=== PATIENT | female | born 1955 | race Two or more races ===

== ENCOUNTER 2020-03-21 00:45 | Inpatient (IN) | payer MEDICAID, MEDICARE ==
[2020-03-21 01:16] LABS: ABSOLUTE LYMPHOCYTES (AUTO) 1.3 10^3/uL (0.5-4.7); ABSOLUTE MONOCYTES (AUTO) 0.6 10^3/uL (0.1-1.4); ABSOLUTE NEUT (AUTO) 5.7 10^3/uL (1.7-8.2); BASOPHILS % (AUTO) 0.6 % (0-2); HEMOGLOBIN 13.6 g/dL (12.0-15.5); LYMPHOCYTES % (AUTO) 17.5 % (13-45); MEAN CORPUSCULAR HEMOGLOBIN 28.2 pg (27.0-33.4); MEAN CORPUSCULAR HGB CONC 34.9 g/dL (32.0-36.0); MEAN CORPUSCULAR VOLUME 81 fl (80-97); MONOCYTES % (AUTO) 8.3 % (3-13); PLATELET COUNT 200 10^3/uL (150-450); RED BLOOD COUNT 4.84 10^6/uL (3.72-5.28); RED CELL DISTRIBUTION WIDTH 15.8 % (11.5-14.0); SEGMENTED NEUTROPHILS % (AUTO) 73.6 % (42-78); TOTAL CELLS COUNTED % (AUTO) 100 %; WHITE BLOOD COUNT 7.7 10^3/uL (4.0-10.5)
[2020-03-21] MEDS ORDERED: ACETAMINOPHEN 325 MG TABLET PO ONE (01:30)
[2020-03-21] MEDS ORDERED: NORMAL SALINE 1000 ML 1,000 ML IV ONE (01:31)
--- NOTE | 2020-03-21 01:32 | ER Document Report ---
ED Respiratory Problem - General Chief Complaint: Shortness Of Breath Stated Complaint: SHORTNESS OF BREATH Time Seen by Provider: 03/21/20 01:20 Notes: Patient is a 64-year-old female that comes to the emergency department for chief complaint of cough, fevers, chills, body aches, shortness of breath. Patient states that she was diagnosed with COVID-19 approximately 3 days ago with primary care, she states since then she has worsened and over the past days she has had decreased energy, increased weakness, and increased difficulty breathin g. She denies specific chest pain, headache, abdominal pain. She states she stopped smoking over 30 years ago, denies history of asthma or COPD. She reports a past medical history of type 2 diabetes, obesity, hypertension. She denies any cardiac history. Patient is on 4 L nasal cannula this time, she came by EMS, initial oxygen saturation was 85% on room air. TRAVEL OUTSIDE OF THE [place] IN LAST 30 DAYS: No - Related Data Allergies/Adverse Reactions: No Known Allergies Allergy (Unverified 02/28/15 11:56) Past Medical History - General Information source: Patient - Social History Smoking Status: Former Smoker Frequency of alcohol use: None Drug Abuse: None Lives with: Family Family History: Reviewed & Not Pertinent Patient has homicidal ideation: No - Past Medical History Cardiac Medical History: Reports: Hx Hypertension Endocrine Medical History: Reports: Hx Diabetes Mellitus Type 2 Musculoskeletal Medical History: Reports Hx Arthritis Past Surgical History: Reports: Hx Breast Surgery - lumpectomy - Immunizations Hx Diphtheria, Pertussis, Tetanus Vaccination: Yes Review of Systems - Review of Systems Constitutional: See HPI EENT: No symptoms reported Cardiovascular: No symptoms reported Respiratory: See HPI Gastrointestinal: No symptoms reported Genitourinary: No symptoms reported Female Genitourinary: No symptoms reported Musculoskeletal: No symptoms reported Skin: No symptoms reported Hematologic/Lymphatic: No symptoms reported Neurological/Psychological: No symptoms reported Physical Exam - Vital signs Vitals: Resp Pulse Ox 29 H 95 03/21/20 00:45 03/21/20 00:45 - Notes Notes: GENERAL: Patient is alert, interactive, mildly ill-appearing HEAD: Normocephalic, atraumatic. EYES: Pupils equal, round, and reactive to light. Extraocular movements intact. ENT: Oral mucosa moist, tongue midline. Oropharynx unremarkable. Airway patent. NECK: Full range of motion. Supple. Trachea midline. No lymphadenopathy. LUNGS: Occasional coughing episodes, borderline tachypnea, bilateral rales especially on the right mid to lower lung cuevas. No accessory muscle use or overt labored breathing. HEART: Regular rate and rhythm. No murmur ABDOMEN: Soft, non-tender. Non-distended. EXTREMITIES: Moves all 4 extremities spontaneously. No edema, normal radial and dorsalis pedis pulses bilaterally. No cyanosis. BACK: no cervical, thoracic, lumbar midline tenderness. No saddle anesthesia, normal distal neurovascular exam. Moves all extremities in full range of motion. NEUROLOGICAL: Alert and oriented x3. Normal speech. Cranial nerves II through XII grossly intact. Strength 5/5 in all extremities. PSYCH: Normal affect, normal mood. SKIN: Warm, dry, normal turgor. No rashes or lesions noted. Course - Re-evaluation Re-evalutation: 03/21/20 01:33 On my evaluation patient can speak in full sentences, she does not appear to be in distress. Intermittently she does become tachypneic but she does not have labored breathing. She has rales in the right lung cuevas, already is positive for COVID-19 on outpatient testing, I suspect she has pneumonia. Patient will be closely reevaluated, at this time patient will not be placed on BiPAP after I discussed this with the patient. 03/21/20 On evaluation patient is actually improved, patient still has significant dyspnea and has some tachypnea with exertion but at rest patient has no tachypnea, no labored breathing, and is able to speak in full sentences. She is not hypoxic on the 4 L nasal cannula. She does continue to have rales on exam. Chest x-ray shows bilateral pneumonia. CBC with no acute abnormality noted, VBG unremarkable, chemistry borderline with elevated glucose but no acidosis, borderline LFTs. Urine shows hematuria, patient states she is bleeding vaginally and she "needs to get this checked out later on". She states she has had intermittent vaginal bleeding for some time. She states she is aware of this and will follow-up for this. She denies abdominal pain, pelvic pain. Patient initiated on treatment for community-acquired pneumonia, started on dexamethasone for suspected cover pneumonia, and will require admission for hypoxia. Patient also has multiple risk factors with COVID-19 including age of 64, obesity, hypertension, diabetes. I did discuss patient's details, recommend admission, patient states appreciation and agreement. Discussed with Dr. Martinez, hospitalist, patient accepted to [facility] full admission. - Vital Signs Vital signs: Temp Pulse Resp BP Pulse Ox 97.4 F 26 H 190/92 H 100 03/21/20 06:57 03/21/20 06:00 03/21/20 03:01 03/21/20 05:00 - Laboratory Result Diagrams: 03/21/20 00:58 03/21/20 01:47 Laboratory results interpreted by me: 03/21/20 03/21/20 03/21/20 00:58 01:47 01:47 RDW 15.8 H VBG pH 7.50 H Sodium 131.4 L Glucose 221 H Direct Bilirubin 0.5 H AST 68 H ALT 41 H Urine Protein Urine Ketones Urine Blood Urine Urobilinogen 03/21/20 03:27 RDW VBG pH Sodium Glucose Direct Bilirubin AST ALT Urine Protein 100 H Urine Ketones TRACE H Urine Blood LARGE H Urine Urobilinogen 4.0 H - EKG Interpretation by Me Additional EKG results interpreted by me: EKG shows sinus tachycardia at a rate of 104, QTc 469, left axis deviation. No overt T wave inversions or ST segment changes in consecutive leads Discharge - Discharge Clinical Impression: Pneumonia due to COVID-19 virus, Hypoxia, Productive cough Condition: Stable Disposition: ADMITTED INPATIENT Admitting Provider: Michelle (Hospitalist) Unit Admitted: [facility]
[2020-03-21 02:07] LABS: VENOUS BLOOD BASE EXCESS 3.9 mmol/L; VENOUS BLOOD PCO2 35.8 mmHg (35-63); VENOUS BLOOD PH 7.5 (7.30-7.42)
[2020-03-21 02:28] LABS: ALBUMIN 3.6 g/dL (3.5-5.0); ALKALINE PHOSPHATASE 57 U/L (38-126); ANION GAP 10 (5-19); ASPARTATE AMINO TRANSFERASE 68 U/L (14-36); BILIRUBIN,DIRECT 0.5 mg/dL (0.0-0.4); BLOOD UREA NITROGEN 9 mg/dL (7-20); CALCIUM 8.5 mg/dL (8.4-10.2); CARBON DIOXIDE 23 mmol/L (22-30); CHLORIDE 98 mmol/L (98-107); GLUCOSE 221 mg/dL (75-110); POTASSIUM 4.2 mmol/L (3.6-5.0)
--- NOTE | 2020-03-21 02:36 | RADIOLOGY REPORT (SQ) ---
EXAM DESCRIPTION: XR CHEST 1 VIEW COMPLETED DATE/TME: 03/21/2020 01:05 CLINICAL HISTORY: 64 years, Female, dyspnea COMPARISON: 01/16/2011 chest NUMBER OF VIEWS: 1 TECHNIQUE: Portable chest LIMITATIONS: None. FINDINGS: Cardiomegaly. Airspace opacities bilaterally. No pneumothorax IMPRESSION: Bilateral airspace opacities worrisome for pneumonia copyright 2011 [employer]- All Rights Reserved
[2020-03-21] MEDS ORDERED: DEXAMETHASONE SOD PHOS INJ 10 MG/1 ML VIAL IV ONE (02:59)
[2020-03-21] MEDS ORDERED: AZITHROMYCIN INJ 500 MG VIAL IV ONE (02:59)
[2020-03-21] MEDS ORDERED: CEFTRIAXONE 1 GM/D5W RTU 1 GM/50 ML RTUPB IV ONE (02:59)
[2020-03-21 04:12] LABS: APPEARANCE,URINE CLEAR; BILIRUBIN,URINE NEGATIVE (NEGATIVE); COLOR,URINE YELLOW; GLUCOSE, URINE NEGATIVE (NEGATIVE); KETONES,URINE TRACE mg/dL (NEGATIVE); LEUKOCYTE ESTERASE,URINE NEGATIVE (NEGATIVE); NITRITE,URINE NEGATIVE (NEGATIVE); PROTEIN,URINE 100 mg/dL (NEGATIVE); URINE SPECIFIC GRAVITY 1.008
[2020-03-21] MEDS ORDERED: ACETAMINOPHEN 325 MG TABLET PO PRN (04:17)
[2020-03-21] MEDS ORDERED: GUAIFENESIN SYRP 200 MG/10 ML UDC PO PRN (04:17)
[2020-03-21] MEDS ORDERED: MORPHINE SULFATE 10 MG/ML INJ IV PRN (04:28)
[2020-03-21] MEDS ORDERED: GLUCAGON,HUMAN RECOMB 1 MG INJ IM PRN (04:28)
[2020-03-21] MEDS ORDERED: DEXTROSE 50%-WATER 25 GM/50 ML DISP.SYRIN IV PRN ×2 (04:28)
[2020-03-21] MEDS ORDERED: LORAZEPAM INJ 2 MG/1 ML VIAL IV PRN (04:28)
[2020-03-21] MEDS ORDERED: INSULIN REG, HUMAN 100 UNIT/ML 3 ML VIAL (PYX) SUBCUT PRN (04:28)
[2020-03-21] MEDS ORDERED: DEXTROSE 40% GEL 15 GM TUBE PO PRN ×2 (04:28)
[2020-03-21] MEDS ORDERED: HEPARIN SOD (PORCINE) 5,000 UNIT/ML 1 ML VIAL SUBCUT SCH (06:00)
[2020-03-21] MEDS ORDERED: DEXAMETHASONE SOD PHOSPHATE INJ 4 MG/1 ML VIAL IV SCH (06:00)
--- NOTE | 2020-03-21 06:36 | PDOC H&P ---
History of Present Illness Admission Date/PCP: 03/21/2020 03:59 DUSTIN CARLOS DO Patient complains of: Dyspnea History of Present Illness: NUVIA JEWELL is a 64 year old female presented emergency room with a 4-day history of dyspnea. She admits progressively worsening dyspnea with an pink nonproductive cough and associated subjective fever with chills, malaise, generalized weakness, fatigue and ague over the course of the last 4 days. Her dyspnea is worsened by activity and exertion. She was seen by her primary care provider and was tested for COVID-19 with a positive result. She denies other associated or accompanying signs and symptoms. She denies prior similar episode s. She has not identified any additional aggravating or ameliorating factors for her dyspnea. In the emergency room the patient was found to be hypoxic and required supplemental oxygen for maintenance of an adequate O2 saturation. X- ray showed a bilateral interstitial pneumonia pattern typical of COVID-19 pneumonia. She was subsequently admitted to the hospital for further evaluation and treatment. Past Medical History Cardiac Medical History: Reports: Hypertension Denies: Coronary Artery Disease, Myocardial Infarction Pulmonary Medical History: Denies: Asthma, Chronic Obstructive Pulmonary Disease (COPD) EENT Medical History: Denies: Cataracts, Ears - Hearing aids Neurological Medical History: Denies: Hemorrhagic CVA, Ischemic CVA, Seizures Endocrine Medical History: Reports: Diabetes Mellitus Type 2, Obesity Denies: Diabetes Mellitus Type 1, Hyperthyroidism, Hypothyroidism Renal/ Medical History: Denies: Chronic Kidney Disease, Nephrolithiasis Malignancy Medical History: Reports: None GI Medical History: Denies: Cirrhosis, Hepatitis, Peptic Ulcer Disease Musculoskeltal Medical History: Reports: Arthritis Denies: Gout Skin Medical History: Denies: Eczema, Psoriasis Psychiatric Medical History: Denies: Alcohol Dependency, Substance Abuse, Tobacco Dependency Traumatic Medical History: Reports: None Hematology: Denies: Anemia, Bleeding Tendencies Infectious Medical History: Reports: None Past Surgical History Past Surgical History: Reports: Other - Breast biopsy Social History Information Source: Patient Lives with: Spouse/Significant other Smoking Status: Never Smoker Electronic Cigarette use?: No Frequency of Alcohol Use: None Hx Recreational Drug Use: No Drugs: None Hx Prescription Drug Abuse: No - Advance Directive Resuscitation Status: Full Code Surrogate healthcare decision maker:: Gino Gibson Family History Family History: DM, Hypertension. denies: CAD, Malignancy Parental Family History Reviewed: Yes Children Family History Reviewed: No Sibling(s) Family History Reviewed.: Yes Medication/Allergy Home Medications: Metronidazole 500 mg PO BID #14 tablet 02/28/15 Allergies/Adverse Reactions: No Known Allergies Allergy (Unverified 02/28/15 11:56) Review of Systems Constitutional: PRESENT: as per HPI, chills, fatigue, fever(s), weakness Eyes: ABSENT: visual disturbances, other - Eye pain Ears: ABSENT: hearing changes, other - Ear pain Nose, Mouth, and Throat: ABSENT: headache(s), sore throat Cardiovascular: PRESENT: as per HPI, dyspnea on exertion. ABSENT: chest pain, palpitations Respiratory: PRESENT: as per HPI, cough, dyspnea. ABSENT: hemoptysis, sputum Gastrointestinal: ABSENT: abdominal pain, constipation, diarrhea, nausea, vomiting Genitourinary: ABSENT: dysuria Musculoskeletal: ABSENT: back pain, joint swelling Integumentary: ABSENT: pruritus, rash Neurological: ABSENT: confusion, convulsions, focal weakness, memory loss, syncope Psychiatric: ABSENT: anxiety, depression Endocrine: ABSENT: cold intolerance, heat intolerance Hematologic/Lymphatic: ABSENT: easy bleeding, easy bruising Allergic/Immunologic: ABSENT: seasonal rhinorrhea Physical Exam Vital Signs: Temp Pulse Resp BP Pulse Ox 100.2 F 23 H 162/83 H 98 03/21/20 01:05 03/21/20 02:01 03/21/20 02:01 03/21/20 02:01 Intake & Output 03/19/20 03/20/20 03/21/20 23:59 23:59 23:59 Intake Total 1000 Balance 1000 Weight 118.3 kg General appearance: PRESENT: cooperative, mild distress - Secondary to dyspnea Head exam: PRESENT: atraumatic, normocephalic Eye exam: PRESENT: conjunctiva pink. ABSENT: conjunctival injection, scleral icterus Ear exam: PRESENT: normal external ear exam. ABSENT: bleeding, drainage Mouth exam: PRESENT: dry mucosa, neck supple Neck exam: ABSENT: thyromegaly, tracheal deviation Respiratory exam: PRESENT: accessory muscle use - Mild accessory muscle use, symmetrical, tachypnea. ABSENT: rales, rhonchi Cardiovascular exam: PRESENT: RRR. ABSENT: clicks, gallop, rubs Pulses: PRESENT: normal radial pulses, normal dorsalis pedis pul Vascular exam: PRESENT: normal capillary refill. ABSENT: pallor GI/Abdominal exam: PRESENT: normal bowel sounds, soft. ABSENT: tenderness Rectal exam: PRESENT: deferred Extremities exam: ABSENT: joint swelling, pedal edema Musculoskeletal exam: ABSENT: deformity, dislocation Neurological exam: PRESENT: alert, oriented to person, oriented to place, oriented to time, CN II-XII grossly intact. ABSENT: motor sensory deficit Psychiatric exam: PRESENT: flat affect, normal mood Skin exam: PRESENT: dry, intact, warm. ABSENT: jaundice, rash, urticaria Results Laboratory Results: 03/21/20 00:58 03/21/20 01:47 03/21/20 03/21/20 03/21/20 00:58 00:58 01:47 WBC 7.7 RBC 4.84 Hgb 13.6 Hct 39.0 MCV 81 MCH 28.2 MCHC 34.9 RDW 15.8 H Plt Count 200 Seg Neutrophils % 73.6 VBG pH VBG pCO2 VBG HCO3 VBG Base Excess Sodium Cancelled 131.4 L Potassium Cancelled 4.2 Chloride Cancelled 98 Carbon Dioxide Cancelled 23 Anion Gap Cancelled 10 BUN Cancelled 9 Creatinine Cancelled 0.60 Est GFR ( Amer) Cancelled > 60 Est GFR (Non-Af Amer) Cancelled Glucose Cancelled 221 H Lactic Acid Calcium Cancelled 8.5 Total Bilirubin Cancelled 1.0 AST Cancelled 68 H Alkaline Phosphatase Cancelled 57 Total Protein Cancelled 7.0 Albumin Cancelled 3.6 03/21/20 03/21/20 01:47 01:47 WBC RBC Hgb Hct MCV MCH MCHC RDW Plt Count Seg Neutrophils % VBG pH 7.50 H VBG pCO2 35.8 VBG HCO3 27.0 VBG Base Excess 3.9 Sodium Potassium Chloride Carbon Dioxide Anion Gap BUN Creatinine Est GFR ( Amer) Est GFR (Non-Af Amer) Glucose Lactic Acid 1.1 Calcium Total Bilirubin AST Alkaline Phosphatase Total Protein Albumin 03/21/20 03/21/20 00:58 01:47 Troponin I Cancelled 0.015 Impressions: Chest X-Ray 03/21/20 01:05 IMPRESSION: Bilateral airspace opacities worrisome for pneumonia copyright 2010 [employer]- All Rights Reserved Assessment and Plan - Diagnosis (1) Pneumonia due to COVID-19 virus Is this a current diagnosis for this admission?: Yes (2) Acute respiratory failure with hypoxia Is this a current diagnosis for this admission?: Yes (3) Diabetes mellitus type 2 in obese Is this a current diagnosis for this admission?: Yes (4) Hypertension Qualifiers: Hypertension type: essential hypertension Qualified Code(s): I10 - Essential (primary) hypertension Is this a current diagnosis for this admission?: Yes (5) Obesity Qualifiers: Obesity type: unspecified obesity type Obesity classification: adult class 2 (BMI 35 - 39.9) Serious obesity comorbidity presence: unspecified whether serious comorbidity present Body mass index: BMI 38.0-38.9 Qualified Code(s): E66.9 - Obesity, unspecified; Z68.38 - Body mass index (BMI) 38.0-38.9, adult Is this a current diagnosis for this admission?: Yes - Plan Summary Summary: Patient will be admitted to the COVID-19 unit on IMCU. She will receive routine supportive and symptomatic cares. She will receive dexamethasone 2 mg IV every 8 hours. She will receive supplemental oxygen utilizing nasal cannula in order to maintain adequate oxygen saturation. She will receive Rocephin 1 g IV daily and azithromycin 500 mg IV daily. She will use Ativan 1 mg IV every 4 hours as needed for anxiety or restlessness. She will use morphine sulfate 2 to 4 mg IV every 4 hours as needed for pain. She will be maintained on a cardiac and diabetic restricted diet. Before meals and at bedtime Accu-Cheks to be performed with sliding scale insulin for hyperglycemia and a hypoglycemic protocol in place. CBCs, metabolic profiles and additional laboratory and/or radiographic evaluations will be obtained as needed. - Time Time Spent with patient: Less than 15 minutes Medications reviewed and adjusted accordingly: Yes Anticipated Discharge Disposition: Home, Self Care Anticipated Discharge Timeframe: Undetermined - Inpatient Certification Based on my medical assessment, after consideration of the patient's comorbidities, presenting symptoms, or acuity I expect that the services needed warrant INPATIENT care.: Yes I certify that my determination is in accordance with my understanding of Medicare's requirements for reasonable and necessary INPATIENT services [42 CFR 412.3e].: Yes Medical Necessity: Failure to Improve With Outpatient Therapy, Significant Comorbidiites Make Outpatient Treatment Too Risky, Need Close Monitoring Due to Risk of Patient Decompensation, Need For Continuous Telemetry Monitoring, Need for IV Antibiotics, Risk of Diagnosis Which Will Require Inpatient Eval/Care/Monitoring
--- NOTE | 2020-03-21 07:21 | EKG REPORT ---
SEVERITY:- ABNORMAL ECG - SINUS TACHYCARDIA SUPRAVENTRICULAR BIGEMINY PROBABLE LEFT ATRIAL ABNORMALITY LVH WITH SECONDARY REPOLARIZATION ABNORMALITY : Confirmed by: Bharat Sal 21-Mar-2020 07:20:31
[2020-03-21] MEDS ORDERED: ACETYLCYSTEINE 20% SOLN 800 MG/4 ML VIAL.NEB NEB SCH (08:00)
[2020-03-21] MEDS: CHOLECALCIFEROL (D3) 400 UNIT TABLET PO SCH (09:42)
[2020-03-21] MEDS: ASCORBIC ACID 500 MG TABLET PO SCH ×2 (09:42→17:15)
[2020-03-21] MEDS: DEXAMETHASONE SOD PHOSPHATE INJ 4 MG/1 ML VIAL IV SCH ×2 (09:42→23:27)
[2020-03-21] MEDS: FAMOTIDINE 20 MG TABLET PO SCH ×2 (09:42→22:40)
[2020-03-21] MEDS: ZINC SULFATE 220 MG CAPSULE PO SCH (09:42)
[2020-03-21] MEDS ORDERED: HYDRALAZINE HCL INJ/PF 20 MG/1 ML SDV IV PRN (09:59)
[2020-03-21] MEDS: LEVALBUTEROL HCL NEB 0.63 MG/3 ML AMPUL NEB PRN ×2 (10:26→20:45)
[2020-03-21] MEDS: LISINOPRIL 10 MG TABLET PO SCH (10:28)
[2020-03-21 11:49] LABS: TRIGLYCERIDES 109 mg/dL (<150)
[2020-03-21 11:58] LABS: DIRECT LDL 53 mg/dL (<100)
[2020-03-21 12:04] LABS: C-REACTIVE PROTEIN 171.7 mg/L (<10.0)
[2020-03-21] MEDS ORDERED: PHARMACY COMMUNICATION ORDER MC NR (13:00)
[2020-03-21] MEDS ORDERED: INSULIN LISPRO 100 UNIT/ML 3 ML VIAL SUBCUT ONE (14:30)
[2020-03-21] MEDS ORDERED: REMDESIVIR (EUA) 200 MG in NORMAL SALINE 250 ML IV ONE (15:00)
[2020-03-21] MEDS: INSULIN LISPRO 100 UNIT/ML 3 ML VIAL SUBCUT SCH ×2 (17:15→22:37)
--- NOTE | 2020-03-21 18:38 | Progress Note ---
Provider Note Provider Note: Patient is a 64-year-old female with a past medical history significant for hypertension, DM 2, arthritis, and obesity who was admitted early this morning by the spray drier for acute respiratory failure with hypoxia secondary to COVID- 19 pneumonia. Overnight events, nursing notes, vital signs, laboratory results, imaging studies, and orders reviewed. Agree with the plan of care as established by the previous provider. In addition: Start Full dose Lovenox related elevated d-dimer. IV azithromycin IV Remdesivir Patient has declined convalescent serum Provide supplemental oxygen as needed maintain saturations greater than 89%. CPAP nightly and PRN As needed nebulizer treatments. Zinc, vitamin D, vitamin C, and melatonin supplementation. Analgesics and antipyretics prn Encourage pulmonary toilet. Isolation precautions. Start lisinopril and nifedipine w/ prn IV Hydralazine for BP control.
[2020-03-21] MEDS ORDERED: INSULIN GLARGINE,HUM.REC.ANLOG 1,000 UNIT/10 ML VIAL (PYX) SUBCUT ONE (22:28)
[2020-03-21] MEDS: ENOXAPARIN SODIUM INJ 150 MG/1 ML DISP.SYRIN SUBCUT SCH (22:33)
[2020-03-21] MEDS: INSULIN GLARGINE,HUM.REC.ANLOG 1,000 UNIT/10 ML VIAL SUBCUT SCH (22:37)
[2020-03-21] MEDS: NIFEDIPINE 30 MG TAB.ER.24 PO SCH (22:39)
[2020-03-21] MEDS: CEFTRIAXONE 1 GM/D5W RTU 1 GM/50 ML RTUPB IV SCH (22:39)
[2020-03-21] MEDS: AZITHROMYCIN 500 MG in DEXTROSE 5%-WATER 250 ML IV SCH (23:26)
[2020-03-22 07:25] LABS: HEMATOCRIT 39.6 % (36.0-47.0); HEMOGLOBIN 13.6 g/dL (12.0-15.5); MEAN CORPUSCULAR HEMOGLOBIN 28.2 pg (27.0-33.4); MEAN CORPUSCULAR HGB CONC 34.4 g/dL (32.0-36.0); MEAN CORPUSCULAR VOLUME 82 fl (80-97); PLATELET COUNT 267 10^3/uL (150-450); RED BLOOD COUNT 4.83 10^6/uL (3.72-5.28); RED CELL DISTRIBUTION WIDTH 15.6 % (11.5-14.0); WHITE BLOOD COUNT 10.2 10^3/uL (4.0-10.5)
[2020-03-22 07:45] LABS: ALBUMIN 3.6 g/dL (3.5-5.0); ALKALINE PHOSPHATASE 62 U/L (38-126); ANION GAP 8 (5-19); ASPARTATE AMINO TRANSFERASE 49 U/L (14-36); BILIRUBIN,DIRECT 0.4 mg/dL (0.0-0.4); BILIRUBIN,TOTAL 0.8 mg/dL (0.2-1.3); BLOOD UREA NITROGEN 21 mg/dL (7-20); CALCIUM 8.7 mg/dL (8.4-10.2); CARBON DIOXIDE 26 mmol/L (22-30); CHLORIDE 99 mmol/L (98-107); GLUCOSE 313 mg/dL (75-110); POTASSIUM 4.5 mmol/L (3.6-5.0); TOTAL PROTEIN 7.2 g/dL (6.3-8.2)
[2020-03-22] MEDS: INSULIN LISPRO 100 UNIT/ML 3 ML VIAL SUBCUT SCH ×4 (09:20→22:59)
[2020-03-22] MEDS: FAMOTIDINE 20 MG TABLET PO SCH ×2 (09:21→22:59)
[2020-03-22] MEDS: ASCORBIC ACID 500 MG TABLET PO SCH ×2 (09:21→17:28)
[2020-03-22] MEDS: ZINC SULFATE 220 MG CAPSULE PO SCH (09:21)
[2020-03-22] MEDS: CHOLECALCIFEROL (D3) 400 UNIT TABLET PO SCH (09:21)
[2020-03-22] MEDS: DEXAMETHASONE SOD PHOSPHATE INJ 4 MG/1 ML VIAL IV SCH ×2 (09:21→23:01)
[2020-03-22] MEDS: LISINOPRIL 10 MG TABLET PO SCH (09:21)
[2020-03-22] MEDS: NIFEDIPINE 30 MG TAB.ER.24 PO SCH ×2 (09:21→22:58)
[2020-03-22] MEDS: ENOXAPARIN SODIUM INJ 150 MG/1 ML DISP.SYRIN SUBCUT SCH ×3 (10:40→23:00)
[2020-03-22] MEDS: REMDESIVIR (EUA) 100 MG in NORMAL SALINE 250 ML IV SCH (11:16)
--- NOTE | 2020-03-22 16:15 | PDOC PROGRESS REPORT ---
Subjective Progress Note for:: 03/22/20 Subjective:: Patient is a 64-year-old female with a past medical history significant for hypertension, DM 2, arthritis, and obesity who was admitted 03/21/20 for acute respiratory failure with hypoxia secondary to COVID-19 pneumonia. Patient was seen on afternoon rounds. She is found resting in bed, comfortably, on supplemental oxygen via nasal cannula at 6 L/min. She reports continued fatigue and dyspnea while at rest, although, states overall she is feeling improved today. She denies fever, chills, chest pain, palpitations, orthopnea, abdominal pain, nausea vomiting and diarrhea. She has no questions or concerns at this time. No concerns per nursing. Spoke with patient's son, , by speaker phone while in the room with patient. Reason For Visit: COVID-19 PNEUMONIA Physical Exam Vital Signs: Temp Pulse Resp BP Pulse Ox 97.6 F 97 24 H 152/63 H 86 L 03/22/20 12:23 03/22/20 14:00 03/22/20 12:23 03/22/20 12:23 03/22/20 12:23 Intake & Output 03/21/20 03/22/20 03/23/20 06:59 06:59 06:59 Intake Total 1000 790 490 Output Total 652 Balance 1000 138 490 Weight 118.3 kg General appearance: PRESENT: no acute distress, cooperative, morbidly obese, well-developed, well-nourished Head exam: PRESENT: atraumatic, normocephalic Eye exam: PRESENT: conjunctiva pink, EOMI, PERRLA. ABSENT: scleral icterus Mouth exam: PRESENT: moist, tongue midline Respiratory exam: PRESENT: clear to auscultation iza, symmetrical, unlabored, other - supplemental oxygen by GA. ABSENT: rales, rhonchi, wheezes Cardiovascular exam: PRESENT: RRR. ABSENT: diastolic murmur, rubs, systolic murmur Pulses: PRESENT: normal dorsalis pedis pul Vascular exam: PRESENT: normal capillary refill Rectal exam: PRESENT: deferred Extremities exam: PRESENT: full ROM. ABSENT: calf tenderness, clubbing, pedal edema Musculoskeletal exam: PRESENT: ambulatory Neurological exam: PRESENT: alert, awake, oriented to person, oriented to place, oriented to time, oriented to situation, CN II-XII grossly intact. ABSENT: motor sensory deficit Psychiatric exam: PRESENT: appropriate affect, normal mood. ABSENT: homicidal ideation, suicidal ideation Skin exam: PRESENT: dry, intact, warm. ABSENT: cyanosis, rash Results Laboratory Results: 03/22/20 06:55 03/22/20 06:55 03/22/20 03/22/20 06:55 06:55 WBC 10.2 RBC 4.83 Hgb 13.6 Hct 39.6 MCV 82 MCH 28.2 MCHC 34.4 RDW 15.6 H Plt Count 267 Sodium 133.2 L Potassium 4.5 Chloride 99 Carbon Dioxide 26 Anion Gap 8 BUN 21 H Creatinine 0.80 Est GFR ( Amer) > 60 Glucose 313 H Calcium 8.7 Total Bilirubin 0.8 AST 49 H Alkaline Phosphatase 62 Total Protein 7.2 Albumin 3.6 03/21/20 03/21/20 00:58 01:47 Troponin I Cancelled 0.015 Impressions: Chest X-Ray 03/21/20 01:05 IMPRESSION: Bilateral airspace opacities worrisome for pneumonia copyright 2011 [employer]- All Rights Reserved Assessment and Plan - Diagnosis (1) Pneumonia due to COVID-19 virus Is this a current diagnosis for this admission?: Yes Plan: Increased oxygen needs today; currently on 6lpm via [place] COVID test positive (done at outside facility) D-dimer and CRP are elevated. ABG pending Patient is admitted to the medical floor on continuous cardiac telemetry and pulse oximetry. Full dose Lovenox related elevated d-dimer. IV azithromycin IV Remdesivir Patient has declined convalescent serum Provide supplemental oxygen as needed maintain saturations greater than 89%. HFNC PRN As needed nebulizer treatments. Zinc, vitamin D, vitamin C, and melatonin supplementation. Analgesics and antipyretics prn Encourage pulmonary toilet. Isolation precautions. (2) Acute respiratory failure with hypoxia Is this a current diagnosis for this admission?: Yes Plan: Secondary to #1 Management as above. (3) Diabetes mellitus type 2 in obese Is this a current diagnosis for this admission?: Yes Plan: Not on home medications. A1c 10.5%. Patient is placed on a consistent carb diet. Accu-Cheks before meals and at bedtime with Humalog for sliding scale coverage. Hypoglycemia protocol in place. Registered dietitian sternman consulted. (4) Hypertension Qualifiers: Hypertension type: essential hypertension Qualified Code(s): I10 - Essential (primary) hypertension Is this a current diagnosis for this admission?: Yes Plan: Remains elevated; not yet optimized. Not on home medications. Start lisinopril 20 mg daily and nifedipine 30 mg twice daily. IV hydralazine as needed. Cardiac diet. (5) Obesity Qualifiers: Obesity type: unspecified obesity type Obesity classification: adult class 2 (BMI 35 - 39.9) Serious obesity comorbidity presence: unspecified whether serious comorbidity present Body mass index: BMI 38.0-38.9 Qualified Code(s): E66.9 - Obesity, unspecified; Z68.38 - Body mass index (BMI) 38.0-38.9, adult Is this a current diagnosis for this admission?: Yes Plan: BMI 38.5. Dietary discretion lifestyle modification are encouraged. Currently on cardiac/consistent carb diet. - Time Time Spent with patient: 35 or more minutes Medications reviewed and adjusted accordingly: Yes Anticipated Discharge Disposition: Home with Home Health - vs SNF for short term Anticipated Discharge Timeframe: >72 hrs
[2020-03-22 18:11] LABS: ARTERIAL BLOOD BASE EXCESS -0.7 mmol/L; ARTERIAL BLOOD H2CO3 0.92 mmol/L (1.05-1.35); ARTERIAL BLOOD O2 SATURATION 92.6 % (94-98); ARTERIAL BLOOD PCO2 30.7 mmHg (35-45); ARTERIAL BLOOD PH 7.47 (7.35-7.45); ARTERIAL BLOOD PO2 59.3 mmHg (80-100); ARTERIAL BLOOD TOTAL CO2 22.9 mmol/L (21-25)
[2020-03-22 18:12] LABS: ARTERIAL BLOOD FIO2 65%
[2020-03-22] MEDS: CEFTRIAXONE 1 GM/D5W RTU 1 GM/50 ML RTUPB IV SCH (22:58)
[2020-03-22] MEDS: INSULIN GLARGINE,HUM.REC.ANLOG 1,000 UNIT/10 ML VIAL SUBCUT SCH (22:59)
[2020-03-22] MEDS: AZITHROMYCIN 500 MG in DEXTROSE 5%-WATER 250 ML IV SCH (23:01)
[2020-03-23 06:43] LABS: HEMATOCRIT 41.2 % (36.0-47.0); MEAN CORPUSCULAR HEMOGLOBIN 27.7 pg (27.0-33.4); MEAN CORPUSCULAR HGB CONC 33.9 g/dL (32.0-36.0); MEAN CORPUSCULAR VOLUME 82 fl (80-97); PLATELET COUNT 321 10^3/uL (150-450); RED BLOOD COUNT 5.04 10^6/uL (3.72-5.28); RED CELL DISTRIBUTION WIDTH 15.9 % (11.5-14.0); WHITE BLOOD COUNT 9.6 10^3/uL (4.0-10.5)
[2020-03-23 07:12] LABS: ANION GAP 10 (5-19); BLOOD UREA NITROGEN 21 mg/dL (7-20); CALCIUM 8.8 mg/dL (8.4-10.2); CARBON DIOXIDE 27 mmol/L (22-30); CHLORIDE 101 mmol/L (98-107); GLUCOSE 239 mg/dL (75-110); POTASSIUM 4.4 mmol/L (3.6-5.0)
[2020-03-23] MEDS: INSULIN LISPRO 100 UNIT/ML 3 ML VIAL SUBCUT SCH ×3 (08:15→17:27)
--- NOTE | 2020-03-23 09:49 | PDOC PROGRESS REPORT ---
Subjective Progress Note for:: 03/23/20 Subjective:: Patient is resting in bed. She appears comfortable. She has just finished her breakfast. Nursing reports ongoing vaginal bleeding. Reason For Visit: COVID-19 PNEUMONIA Physical Exam Vital Signs: Temp Pulse Resp BP Pulse Ox 97.8 F 75 26 H 150/89 H 94 03/23/20 07:29 03/23/20 07:29 03/23/20 07:29 03/23/20 07:29 03/23/20 07:29 Intake & Output 03/22/20 03/23/20 03/24/20 06:59 06:59 06:59 Intake Total 790 2060 Output Total 652 Balance 138 2060 Weight 117.6 kg General appearance: PRESENT: no acute distress, cooperative, well-developed Head exam: PRESENT: atraumatic, normocephalic Eye exam: PRESENT: conjunctiva pink. ABSENT: scleral icterus Ear exam: PRESENT: normal external ear exam. ABSENT: bleeding, drainage Mouth exam: PRESENT: moist, tongue midline Neck exam: PRESENT: other. ABSENT: carotid bruit, JVD, lymphadenopathy Respiratory exam: PRESENT: decreased breath sounds - Right base, symmetrical, tachypnea, unlabored. ABSENT: prolonged expiratory phas, rales, rhonchi, wheezes Cardiovascular exam: PRESENT: RRR, +S1, +S2, systolic murmur - 2/6. ABSENT: bradycardia, diastolic murmur, irregular rhythm, tachycardia GI/Abdominal exam: PRESENT: normal bowel sounds, soft, other - Protuberant abdomen. ABSENT: guarding, tenderness Rectal exam: PRESENT: deferred Neurological exam: PRESENT: alert, awake, oriented to person, oriented to place, oriented to time, oriented to situation, CN II-XII grossly intact. ABSENT: altered Psychiatric exam: PRESENT: appropriate affect. ABSENT: agitated, anxious Focused psych exam: ABSENT: delusional, paranoid, restlessness Skin exam: PRESENT: dry, normal color, warm. ABSENT: erythema, rash Results Laboratory Results: 03/23/20 06:18 03/23/20 06:18 03/22/20 03/23/20 03/23/20 17:55 06:18 06:18 WBC 9.6 RBC 5.04 Hgb 14.0 Hct 41.2 MCV 82 MCH 27.7 MCHC 33.9 RDW 15.9 H Plt Count 321 Carbonic Acid 0.92 L HCO3/H2CO3 Ratio 23:1 ABG pH 7.47 H ABG pCO2 30.7 L ABG pO2 59.3 L ABG HCO3 22.0 ABG O2 Saturation 92.6 L ABG Base Excess -0.7 FiO2 65% Sodium 137.6 Potassium 4.4 Chloride 101 Carbon Dioxide 27 Anion Gap 10 BUN 21 H Creatinine 0.67 Est GFR ( Amer) > 60 Glucose 239 H Calcium 8.8 03/21/20 03/21/20 00:58 01:47 Troponin I Cancelled 0.015 Impressions: Chest X-Ray 03/21/20 01:05 IMPRESSION: Bilateral airspace opacities worrisome for pneumonia copyright 2010 [employer]- All Rights Reserved Assessment and Plan - Diagnosis (1) Pneumonia due to COVID-19 virus Is this a current diagnosis for this admission?: Yes Plan: Increased oxygen needs today; currently on 6lpm via NC COVID test positive (done at outside facility) D-dimer and CRP are elevated. ABG pending Patient is admitted to the medical floor on continuous cardiac telemetry and pulse oximetry. Full dose Lovenox related elevated d-dimer. IV azithromycin IV Remdesivir Patient has declined convalescent serum Provide supplemental oxygen as needed maintain saturations greater than 89%. HFNC PRN As needed nebulizer treatments. Zinc, vitamin D, vitamin C, and melatonin supplementation. Analgesics and antipyretics prn Encourage pulmonary toilet. Isolation precautions. 03/23/2020-continue antibiotic therapy along with vitamin D, C and Lovenox. She is on high flow nasal cannula with reasonable oxygen saturation (2) Acute respiratory failure with hypoxia Is this a current diagnosis for this admission?: Yes Plan: Secondary to #1 Management as above. 03/23/2020-continue to wean to least amount of oxygen needed as tolerated (3) Post-menopausal bleeding Is this a current diagnosis for this admission?: Yes Plan: Nursing reports daily vaginal bleeding. Her hemoglobin did in fact go up slightly today. 2016 she had a vaginal ultrasound which showed a thickened endometrial stripe. There was no biopsy at that time. And going to decrease the Lovenox from therapeutic dosing to 40 mg daily and monitor the bleeding. C onsider repeat transvaginal ultrasound and gynecology consult if the bleeding persists. Will use as an inpatient if her hemoglobin drops or possibly as an outpatient if hemoglobin is stable. (4) Hyperglycemia due to type 2 diabetes mellitus Qualifiers: Diabetes mellitus salvage determiner insulin use: without fci use Qualified Code(s): E11.65 - Type 2 diabetes mellitus with hyperglycemia Is this a current diagnosis for this admission?: Yes Plan: 03/23/2020-the patient was not on any home medications. She presented with hyperglycemia and her hemoglobin A1c was 10.5. She is currently on Lantus and sliding scale. I will increase her Lantus slightly since her Accu-Cheks are still all over 200. (5) Hypertension Qualifiers: Hypertension type: essential hypertension Qualified Code(s): I10 - Essent ial (primary) hypertension Is this a current diagnosis for this admission?: Yes Plan: Remains elevated; not yet optimized. Not on home medications. Start lisinopril 20 mg daily and nifedipine 30 mg twice daily. IV hydralazine as needed. Cardiac diet. 03/23/2020-she is on lisinopril and nifedipine. Blood pressure is still slightly higher than desired. It is more systolic and diastolic at this time. I will add 12.5 mg of hydrochlorothiazide daily. (6) Obesity Qualifiers: Obesity type: unspecified obesity type Obesity classification: adult class 2 (BMI 35 - 39.9) Serious obesity comorbidity presence: with serious comorbidity Body mass index: BMI 38.0-38.9 Qualified Code(s): E66.01 - Morbid (severe) obesity due to excess calories; Z68.38 - Body mass index (BMI) 38.0-38.9, adult Is this a current diagnosis for this admission?: Yes Plan: BMI 38.5. Dietary discretion lifestyle modification are encouraged. Currently on cardiac/consistent carb diet. 03/23/2020-her obesity includes comorbidities of hypertension and diabetes. C ontinue control carbohydrate/cardiac diet. Once she recovers from her Covid-19 pneumonia she will need education regarding diet and exercise. - Time Time Spent with patient: 15-24 minutes Medications reviewed and adjusted accordingly: Yes Anticipated Discharge Disposition: Home with Home Health Anticipated Discharge Timeframe: Unknown
[2020-03-23] MEDS: CHOLECALCIFEROL (D3) 400 UNIT TABLET PO SCH (10:26)
[2020-03-23] MEDS: ENOXAPARIN SODIUM INJ 40 MG/0.4 ML DISP.SYRIN SUBCUT SCH (10:26)
[2020-03-23] MEDS: HYDROCHLOROTHIAZIDE 12.5 MG TABLET PO SCH (10:26)
[2020-03-23] MEDS: DEXAMETHASONE SOD PHOSPHATE INJ 4 MG/1 ML VIAL IV SCH (10:26)
[2020-03-23] MEDS: LISINOPRIL 10 MG TABLET PO SCH (10:26)
[2020-03-23] MEDS: NIFEDIPINE 30 MG TAB.ER.24 PO SCH (10:26)
[2020-03-23] MEDS: ZINC SULFATE 220 MG CAPSULE PO SCH (10:26)
[2020-03-23] MEDS: ASCORBIC ACID 500 MG TABLET PO SCH ×2 (10:26→17:27)
[2020-03-23] MEDS: REMDESIVIR (EUA) 100 MG in NORMAL SALINE 250 ML IV SCH (10:27)
[2020-03-23] MEDS: FAMOTIDINE 20 MG TABLET PO SCH (10:42)
--- NOTE | 2020-03-23 20:27 | EKG REPORT ---
SEVERITY:- ABNORMAL ECG - SINUS RHYTHM WITH APCs LVH WITH SECONDARY REPOLARIZATION ABNORMALITY : Confirmed by: Bharat Sal 23-Mar-2020 20:26:29
[2020-03-23] MEDS ORDERED: INSULIN GLARGINE,HUM.REC.ANLOG 1,000 UNIT/10 ML VIAL SUBCUT SCH (22:00)
[2020-03-24] MEDS: FAMOTIDINE 20 MG TABLET PO SCH ×3 (00:18→22:28)
[2020-03-24] MEDS: NIFEDIPINE 30 MG TAB.ER.24 PO SCH ×3 (00:18→22:28)
[2020-03-24] MEDS: CEFTRIAXONE 1 GM/D5W RTU 1 GM/50 ML RTUPB IV SCH (00:18)
[2020-03-24] MEDS: DEXAMETHASONE SOD PHOSPHATE INJ 4 MG/1 ML VIAL IV SCH ×2 (00:19→09:17)
[2020-03-24] MEDS: AZITHROMYCIN 500 MG in DEXTROSE 5%-WATER 250 ML IV SCH (00:19)
[2020-03-24] MEDS: INSULIN LISPRO 100 UNIT/ML 3 ML VIAL SUBCUT SCH ×5 (00:20→22:26)
--- NOTE | 2020-03-24 07:58 | EKG REPORT ---
SEVERITY:- ABNORMAL ECG - SINUS RHYTHM PROBABLE LEFT ATRIAL ABNORMALITY LVH WITH IVCD AND SECONDARY REPOL ABNRM : Confirmed by: Bharat Sal 24-Mar-2020 07:57:41
[2020-03-24 08:23] LABS: ABSOLUTE LYMPHOCYTES (AUTO) 1.3 10^3/uL (0.5-4.7); ABSOLUTE MONOCYTES (AUTO) 0.3 10^3/uL (0.1-1.4); BASOPHILS % (AUTO) 0.2 % (0-2); HEMATOCRIT 38.4 % (36.0-47.0); HEMOGLOBIN 13.4 g/dL (12.0-15.5); LYMPHOCYTES % (AUTO) 22.6 % (13-45); MEAN CORPUSCULAR HEMOGLOBIN 28.4 pg (27.0-33.4); MEAN CORPUSCULAR HGB CONC 34.9 g/dL (32.0-36.0); MEAN CORPUSCULAR VOLUME 81 fl (80-97); MONOCYTES % (AUTO) 6.2 % (3-13); PLATELET COUNT 316 10^3/uL (150-450); RED BLOOD COUNT 4.72 10^6/uL (3.72-5.28); RED CELL DISTRIBUTION WIDTH 16.1 % (11.5-14.0); TOTAL CELLS COUNTED % (AUTO) 100 %; WHITE BLOOD COUNT 5.6 10^3/uL (4.0-10.5)
[2020-03-24 08:50] LABS: ALBUMIN 3.6 g/dL (3.5-5.0); ALKALINE PHOSPHATASE 54 U/L (38-126); ANION GAP 10 (5-19); ASPARTATE AMINO TRANSFERASE 44 U/L (14-36); BILIRUBIN,DIRECT 0.4 mg/dL (0.0-0.4); BILIRUBIN,TOTAL 0.8 mg/dL (0.2-1.3); BLOOD UREA NITROGEN 21 mg/dL (7-20); CALCIUM 8.8 mg/dL (8.4-10.2); CARBON DIOXIDE 29 mmol/L (22-30); CHLORIDE 97 mmol/L (98-107); GLUCOSE 214 mg/dL (75-110)
[2020-03-24 08:51] LABS: POTASSIUM 4.2 mmol/L (3.6-5.0)
[2020-03-24] MEDS: HYDROCHLOROTHIAZIDE 12.5 MG TABLET PO SCH (09:17)
[2020-03-24] MEDS: CHOLECALCIFEROL (D3) 400 UNIT TABLET PO SCH (09:17)
[2020-03-24] MEDS: ZINC SULFATE 220 MG CAPSULE PO SCH (09:17)
[2020-03-24] MEDS: ASCORBIC ACID 500 MG TABLET PO SCH ×2 (09:17→17:57)
[2020-03-24] MEDS: LISINOPRIL 10 MG TABLET PO SCH (09:17)
[2020-03-24] MEDS: ENOXAPARIN SODIUM INJ 40 MG/0.4 ML DISP.SYRIN SUBCUT SCH (09:18)
[2020-03-24] MEDS: REMDESIVIR (EUA) 100 MG in NORMAL SALINE 250 ML IV SCH (11:31)
--- NOTE | 2020-03-24 19:40 | PDOC PROGRESS REPORT ---
Subjective Progress Note for:: 03/24/20 Subjective:: She is still requiring HFNC. She feels tired today. Continues to have vaginal bleeding, minimal. Reason For Visit: COVID-19 PNEUMONIA Physical Exam Vital Signs: Temp Pulse Resp BP Pulse Ox 98.1 F 77 15 148/79 H 94 03/24/20 17:22 03/24/20 17:22 03/24/20 17:22 03/24/20 17:22 03/24/20 17:22 Intake & Output 03/23/20 03/24/20 03/25/20 06:59 06:59 06:59 Intake Total 2059 1485 510 Balance 2059 1485 510 Weight 117.6 kg 117 kg General appearance: PRESENT: no acute distress, obese Eye exam: ABSENT: scleral icterus Mouth exam: PRESENT: dry mucosa Throat exam: ABSENT: post pharyngeal erythema Neck exam: ABSENT: JVD Respiratory exam: PRESENT: rales, rhonchi, tachypnea. ABSENT: crackles Cardiovascular exam: PRESENT: RRR GI/Abdominal exam: PRESENT: normal bowel sounds, soft Rectal exam: PRESENT: deferred Extremities exam: PRESENT: pedal edema Neurological exam: PRESENT: alert, awake Psychiatric exam: PRESENT: flat affect Results Laboratory Results: 03/24/20 07:50 03/24/20 07:50 03/24/20 03/24/20 07:50 07:50 WBC 5.6 RBC 4.72 Hgb 13.4 Hct 38.4 MCV 81 MCH 28.4 MCHC 34.9 RDW 16.1 H Plt Count 316 Seg Neutrophils % 71.0 Sodium 136.2 L Potassium 4.2 Chloride 97 L Carbon Dioxide 29 Anion Gap 10 BUN 21 H Creatinine 0.68 Est GFR ( Amer) > 60 Glucose 214 H Calcium 8.8 Magnesium 2.3 Total Bilirubin 0.8 AST 44 H Alkaline Phosphatase 54 C-Reactive Protein 23.0 H Total Protein 7.0 Albumin 3.6 03/21/20 03/21/20 00:58 01:47 Troponin I Cancelled 0.015 Impressions: Chest X-Ray 03/21/20 01:05 IMPRESSION: Bilateral airspace opacities worrisome for pneumonia copyright 2011 [employer]- All Rights Reserved Assessment and Plan - Plan Summary Summary: COVID Pneumonia Acute respiratory failure with hypoxia currently on high flow NC COVID test positive (done at outside facility) D-dimer and CRP are elevated but declining with treatment IV Remdesivir IV dexamethasone Patient has declined convalescent serum Provide supplemental oxygen as needed maintain saturations greater than 89%. As needed nebulizer treatments. Zinc, vitamin D, vitamin C, and melatonin supplementation. Analgesics and antipyretics prn Encourage pulmonary toilet. Isolation precautions. Post-menopausal bleeding: she reports daily vaginal bleeding. Her hemoglobin remains stable. In 2016 she had a vaginal ultrasound which showed a thickened endometrial stripe. There was no biopsy at that time. She will need outpatient OBGYN follow up upon discharge. Hyperglycemia due to type 2 diabetes mellitus: worse in the s/o steroid administration hemoglobin A1c 10.5 increase Lantus from 12 to 16 units daily continue SSI start metformin on discharge essential hypertension continue lisinopril, nifedipine and HCTZ Obesity: BMI 38 provided education regarding diet and exercise DVT ppx: Lovenox - Time Time Spent with patient: 35 or more minutes Anticipated Discharge Disposition: Home, Self Care Anticipated Discharge Timeframe: within 72 hours
[2020-03-24] MEDS ORDERED: PHARMACY COMMUNICATION ORDER MC NR (19:45)
[2020-03-24] MEDS: INSULIN GLARGINE,HUM.REC.ANLOG 1,000 UNIT/10 ML VIAL SUBCUT SCH (22:27)
[2020-03-25] MEDS: INSULIN LISPRO 100 UNIT/ML 3 ML VIAL SUBCUT SCH ×4 (08:39→22:23)
[2020-03-25] MEDS: DEXAMETHASONE SOD PHOS INJ 10 MG/1 ML VIAL IV SCH (09:10)
[2020-03-25] MEDS: LISINOPRIL 10 MG TABLET PO SCH (09:11)
[2020-03-25] MEDS: ENOXAPARIN SODIUM INJ 40 MG/0.4 ML DISP.SYRIN SUBCUT SCH (09:11)
[2020-03-25] MEDS: FAMOTIDINE 20 MG TABLET PO SCH ×2 (09:11→22:22)
[2020-03-25] MEDS: HYDROCHLOROTHIAZIDE 12.5 MG TABLET PO SCH (09:11)
[2020-03-25] MEDS: ZINC SULFATE 220 MG CAPSULE PO SCH (09:12)
[2020-03-25] MEDS: CHOLECALCIFEROL (D3) 400 UNIT TABLET PO SCH (09:12)
[2020-03-25] MEDS: NIFEDIPINE 30 MG TAB.ER.24 PO SCH ×2 (09:12→22:23)
[2020-03-25] MEDS: ASCORBIC ACID 500 MG TABLET PO SCH ×2 (09:12→17:43)
[2020-03-25 09:54] LABS: ABSOLUTE MONOCYTES (AUTO) 0.4 10^3/uL (0.1-1.4); ABSOLUTE NEUT (AUTO) 4.4 10^3/uL (1.7-8.2); BASOPHILS % (AUTO) 0.4 % (0-2); EOSINOPHILS % (AUTO) 0.2 % (0-6); HEMATOCRIT 41.3 % (36.0-47.0); HEMOGLOBIN 14.1 g/dL (12.0-15.5); LYMPHOCYTES % (AUTO) 29.1 % (13-45); MEAN CORPUSCULAR HEMOGLOBIN 27.8 pg (27.0-33.4); MEAN CORPUSCULAR HGB CONC 34.1 g/dL (32.0-36.0); MEAN CORPUSCULAR VOLUME 82 fl (80-97); MONOCYTES % (AUTO) 5.8 % (3-13); PLATELET COUNT 334 10^3/uL (150-450); RED BLOOD COUNT 5.07 10^6/uL (3.72-5.28); RED CELL DISTRIBUTION WIDTH 15.8 % (11.5-14.0); SEGMENTED NEUTROPHILS % (AUTO) 64.5 % (42-78); TOTAL CELLS COUNTED % (AUTO) 100 %; WHITE BLOOD COUNT 6.9 10^3/uL (4.0-10.5)
[2020-03-25] MEDS ORDERED: ISOSORBIDE MONONITRATE 60 MG TAB.ER.24H PO SCH (10:00)
[2020-03-25 10:12] LABS: ANION GAP 9 (5-19); BLOOD UREA NITROGEN 21 mg/dL (7-20); CALCIUM 8.7 mg/dL (8.4-10.2); CARBON DIOXIDE 24 mmol/L (22-30); CHLORIDE 101 mmol/L (98-107); GLUCOSE 155 mg/dL (75-110)
[2020-03-25 11:44] LABS: ARTERIAL BLOOD BASE EXCESS 1.7 mmol/L; ARTERIAL BLOOD FIO2 100%; ARTERIAL BLOOD H2CO3 1.08 mmol/L (1.05-1.35); ARTERIAL BLOOD HCO3 25.2 mmol/L (20-24); ARTERIAL BLOOD O2 SATURATION 91.2 % (94-98); ARTERIAL BLOOD PCO2 35.9 mmHg (35-45); ARTERIAL BLOOD PH 7.46 (7.35-7.45); ARTERIAL BLOOD PO2 56.5 mmHg (80-100); ARTERIAL BLOOD TOTAL CO2 26.3 mmol/L (21-25)
[2020-03-25] MEDS: REMDESIVIR (EUA) 100 MG in NORMAL SALINE 250 ML IV SCH (12:37)
[2020-03-25 16:30] LABS: ARTERIAL BLOOD BASE EXCESS -0.1 mmol/L; ARTERIAL BLOOD H2CO3 1.05 mmol/L (1.05-1.35); ARTERIAL BLOOD HCO3 23.5 mmol/L (20-24); ARTERIAL BLOOD O2 SATURATION 94.5 % (94-98); ARTERIAL BLOOD PH 7.45 (7.35-7.45); ARTERIAL BLOOD PO2 68.6 mmHg (80-100); ARTERIAL BLOOD TOTAL CO2 24.6 mmol/L (21-25)
[2020-03-25 16:31] LABS: ARTERIAL BLOOD FIO2 85%
--- NOTE | 2020-03-25 19:09 | PDOC PROGRESS REPORT ---
Subjective Progress Note for:: 03/25/20 Subjective:: Breathing much worse today. She has required increasing levels of supplemental O2 throughout the day. Very labored breathing. Reason For Visit: COVID-19 PNEUMONIA Physical Exam Vital Signs: Temp Pulse Resp BP Pulse Ox 97.7 F 93 14 137/73 H 96 03/25/20 08:31 03/25/20 13:54 03/25/20 16:48 03/25/20 08:31 03/25/20 16:48 Intake & Output 03/24/20 03/25/20 03/26/20 06:59 06:59 06:59 Intake Total 1485 1155 250 Balance 1485 1155 250 Weight 117 kg 115.2 kg General appearance: PRESENT: mild distress, obese Eye exam: ABSENT: scleral icterus Mouth exam: PRESENT: moist Throat exam: ABSENT: post pharyngeal erythema Neck exam: ABSENT: JVD Respiratory exam: PRESENT: accessory muscle use, rales, rhonchi, tachypnea. ABSENT: crackles, unlabored Cardiovascular exam: PRESENT: RRR GI/Abdominal exam: PRESENT: normal bowel sounds, soft Extremities exam: ABSENT: pedal edema Neurological exam: PRESENT: altered, awake Psychiatric exam: PRESENT: flat affect Skin exam: ABSENT: rash Results Laboratory Results: 03/25/20 09:36 03/25/20 09:36 03/25/20 03/25/20 03/25/20 09:36 09:36 11:30 WBC 6.9 RBC 5.07 Hgb 14.1 Hct 41.3 MCV 82 MCH 27.8 MCHC 34.1 RDW 15.8 H Plt Count 334 Seg Neutrophils % 64.5 Carbonic Acid 1.08 HCO3/H2CO3 Ratio 23:1 ABG pH 7.46 H ABG pCO2 35.9 ABG pO2 56.5 L ABG HCO3 25.2 H ABG O2 Saturation 91.2 L ABG Base Excess 1.7 FiO2 100% Sodium 134.3 L Potassium 4.0 Chloride 101 Carbon Dioxide 24 Anion Gap 9 BUN 21 H Creatinine 0.63 Est GFR ( Amer) > 60 Glucose 155 H Calcium 8.7 Magnesium 2.0 Ferritin 250.00 03/25/20 16:15 WBC RBC Hgb Hct MCV MCH MCHC RDW Plt Count Seg Neutrophils % Carbonic Acid 1.05 HCO3/H2CO3 Ratio 22:1 ABG pH 7.45 ABG pCO2 35.0 ABG pO2 68.6 L ABG HCO3 23.5 ABG O2 Saturation 94.5 ABG Base Excess -0.1 FiO2 85% Sodium Potassium Chloride Carbon Dioxide Anion Gap BUN Creatinine Est GFR ( Amer) Glucose Calcium Magnesium Ferritin 03/21/20 03/21/20 00:58 01:47 Troponin I Cancelled 0.015 Impressions: Chest X-Ray 03/21/20 01:05 IMPRESSION: Bilateral airspace opacities worrisome for pneumonia copyright 2011 [employer]- All Rights Reserved Assessment and Plan - Diagnosis (1) Acute respiratory failure with hypoxia Is this a current diagnosis for this admission?: Yes (2) Hyperglycemia due to type 2 diabetes mellitus Qualifiers: Diabetes mellitus terminal operations supervisor insulin use: without group home use Qualified Code(s): E11.65 - Type 2 diabetes mellitus with hyperglycemia Is this a current diagnosis for this admission?: Yes (3) Obesity Qualifiers: Obesity type: unspecified obesity type Obesity classification: adult class 2 (BMI 35 - 39.9) Serious obesity comorbidity presence: with serious comorbidity Body mass index: BMI 38.0-38.9 Qualified Code(s): E66.01 - Morbid (severe) obesity due to excess calories; Z68.38 - Body mass index (BMI) 38.0-38.9, adult Is this a current diagnosis for this admission?: Yes (4) Pneumonia due to COVID-19 virus Is this a current diagnosis for this admission?: Yes - Plan Summary Summary: COVID Pneumonia Acute respiratory failure with hypoxia currently on high flow NC at 85% FIO2 and will plan to increase to 100% FIO2 and repeat ABG again this evening COVID test positive (done at outside facility) D-dimer and CRP are elevated but declining with treatment IV Remdesivir IV dexamethasone Patient has declined convalescent serum As needed nebulizer treatments. Zinc, vitamin D, vitamin C, and melatonin supplementation. Analgesics and antipyretics prn Encourage pulmonary toilet. Isolation precautions. Post-menopausal bleeding: she reports daily vaginal bleeding. Her hemoglobin remains stable. In 2016 she had a vaginal ultrasound which showed a thickened endometrial stripe. There was no biopsy at that time. She will need outpatient OBGYN follow up upon discharge. Hyperglycemia due to type 2 diabetes mellitus: worse in the s/o steroid administration hemoglobin A1c 10.5 increased Lantus from 12 to 16 units daily continue SSI start metformin on discharge essential hypertension continue lisinopril, nifedipine and HCTZ Obesity: BMI 38 provided education regarding diet and exercise DVT ppx: Lovenox - Time Time Spent with patient: 35 or more minutes Anticipated Discharge Disposition: Home, Self Care Anticipated Discharge Timeframe: within 72 hours
[2020-03-25] MEDS ORDERED: INSULIN GLARGINE,HUM.REC.ANLOG 1,000 UNIT/10 ML VIAL (PYX) SUBCUT ONE (22:05)
[2020-03-25] MEDS: INSULIN GLARGINE,HUM.REC.ANLOG 1,000 UNIT/10 ML VIAL SUBCUT SCH (22:25)
[2020-03-26 01:04] LABS: ARTERIAL BLOOD BASE EXCESS 1.3 mmol/L; ARTERIAL BLOOD FIO2 95%; ARTERIAL BLOOD H2CO3 1.15 mmol/L (1.05-1.35); ARTERIAL BLOOD HCO3 25.3 mmol/L (20-24); ARTERIAL BLOOD O2 SATURATION 95.8 % (94-98); ARTERIAL BLOOD PCO2 38.2 mmHg (35-45); ARTERIAL BLOOD PH 7.44 (7.35-7.45); ARTERIAL BLOOD PO2 76.7 mmHg (80-100); ARTERIAL BLOOD TOTAL CO2 26.5 mmol/L (21-25)
[2020-03-26] MEDS: INSULIN LISPRO 100 UNIT/ML 3 ML VIAL SUBCUT SCH ×4 (09:18→22:48)
[2020-03-26] MEDS: ZINC SULFATE 220 MG CAPSULE PO SCH (09:21)
[2020-03-26] MEDS: LISINOPRIL 10 MG TABLET PO SCH (09:22)
[2020-03-26] MEDS: DEXAMETHASONE SOD PHOS INJ 10 MG/1 ML VIAL IV SCH (09:22)
[2020-03-26] MEDS: HYDROCHLOROTHIAZIDE 12.5 MG TABLET PO SCH (09:22)
[2020-03-26] MEDS: FAMOTIDINE 20 MG TABLET PO SCH ×2 (09:22→22:47)
[2020-03-26] MEDS: ASCORBIC ACID 500 MG TABLET PO SCH ×2 (09:22→17:08)
[2020-03-26] MEDS: NIFEDIPINE 30 MG TAB.ER.24 PO SCH ×2 (09:22→22:47)
[2020-03-26] MEDS: ENOXAPARIN SODIUM INJ 40 MG/0.4 ML DISP.SYRIN SUBCUT SCH (09:22)
[2020-03-26] MEDS: ISOSORBIDE MONONITRATE 60 MG TAB.ER.24H PO SCH (09:22)
[2020-03-26] MEDS: CHOLECALCIFEROL (D3) 400 UNIT TABLET PO SCH (09:22)
[2020-03-26 11:41] LABS: ABSOLUTE LYMPHOCYTES (AUTO) 1.1 10^3/uL (0.5-4.7); ABSOLUTE MONOCYTES (AUTO) 0.4 10^3/uL (0.1-1.4); ABSOLUTE NEUT (AUTO) 6.6 10^3/uL (1.7-8.2); BASOPHILS % (AUTO) 0.1 % (0-2); EOSINOPHILS % (AUTO) 0.4 % (0-6); HEMATOCRIT 36.6 % (36.0-47.0); HEMOGLOBIN 12.7 g/dL (12.0-15.5); MEAN CORPUSCULAR HEMOGLOBIN 28.1 pg (27.0-33.4); MEAN CORPUSCULAR HGB CONC 34.6 g/dL (32.0-36.0); MEAN CORPUSCULAR VOLUME 81 fl (80-97); MONOCYTES % (AUTO) 5.2 % (3-13); PLATELET COUNT 419 10^3/uL (150-450); RED BLOOD COUNT 4.51 10^6/uL (3.72-5.28); RED CELL DISTRIBUTION WIDTH 15.8 % (11.5-14.0); SEGMENTED NEUTROPHILS % (AUTO) 80.3 % (42-78); TOTAL CELLS COUNTED % (AUTO) 100 %; WHITE BLOOD COUNT 8.2 10^3/uL (4.0-10.5)
[2020-03-26 11:52] LABS: INTERNATIONAL RATION (INR) 1.17; PARTIAL THROMBOPLASTIN TIME 26.7 SEC (23.5-35.8); PROTHROMBIN TIME 15.1 SEC (11.4-15.4)
[2020-03-26 11:54] LABS: D-DIMER 0.66 ug/mL (0.00-0.50)
[2020-03-26 12:04] LABS: ALBUMIN 3.4 g/dL (3.5-5.0); ALKALINE PHOSPHATASE 53 U/L (38-126); ANION GAP 8 (5-19); ASPARTATE AMINO TRANSFERASE 41 U/L (14-36); BILIRUBIN,DIRECT 0.4 mg/dL (0.0-0.4); BILIRUBIN,TOTAL 0.7 mg/dL (0.2-1.3); BLOOD UREA NITROGEN 23 mg/dL (7-20); C-REACTIVE PROTEIN 56.8 mg/L (<10.0); CALCIUM 8.8 mg/dL (8.4-10.2); CARBON DIOXIDE 30 mmol/L (22-30); CHLORIDE 96 mmol/L (98-107); GLUCOSE 187 mg/dL (75-110); POTASSIUM 4.1 mmol/L (3.6-5.0); TOTAL PROTEIN 6.7 g/dL (6.3-8.2)
[2020-03-26] MEDS ORDERED: NORMAL SALINE 250 ML IV PRN (13:37)
--- NOTE | 2020-03-26 15:56 | PDOC PROGRESS REPORT ---
Subjective Progress Note for:: 03/26/20 Subjective:: She looks much improved today - she states that she is more comfortable this morning. She is breathing easier. Denies pain or discomfort. Reason For Visit: COVID-19 PNEUMONIA Physical Exam Vital Signs: Temp Pulse Resp BP Pulse Ox 97.7 F 84 14 134/64 H 96 03/26/20 11:08 03/26/20 11:08 03/26/20 12:32 03/26/20 11:08 03/26/20 12:32 Intake & Output 03/25/20 03/26/20 03/27/20 06:59 06:59 06:59 Intake Total 1155 487 520 Balance 1155 487 520 Weight 115.2 kg 114.4 kg General appearance: PRESENT: no acute distress, obese Eye exam: ABSENT: scleral icterus Mouth exam: PRESENT: moist Throat exam: ABSENT: post pharyngeal erythema Neck exam: ABSENT: JVD Respiratory exam: PRESENT: rales, rhonchi, tachypnea. ABSENT: accessory muscle use, crackles, stridor, wheezes Cardiovascular exam: PRESENT: RRR GI/Abdominal exam: PRESENT: normal bowel sounds, soft Extremities exam: ABSENT: pedal edema, tenderness Neurological exam: PRESENT: alert, awake, oriented to person, oriented to place, oriented to time, oriented to situation Psychiatric exam: PRESENT: appropriate affect Results Laboratory Results: 03/26/20 11:24 03/26/20 11:24 03/25/20 03/26/20 03/26/20 16:15 00:45 11:24 WBC 8.2 RBC 4.51 Hgb 12.7 Hct 36.6 MCV 81 MCH 28.1 MCHC 34.6 RDW 15.8 H Plt Count 419 Seg Neutrophils % 80.3 H Carbonic Acid 1.05 1.15 HCO3/H2CO3 Ratio 22:1 22:1 ABG pH 7.45 7.44 ABG pCO2 35.0 38.2 ABG pO2 68.6 L 76.7 L ABG HCO3 23.5 25.3 H ABG O2 Saturation 94.5 95.8 ABG Base Excess -0.1 1.3 FiO2 85% 95% Sodium Potassium Chloride Carbon Dioxide Anion Gap BUN Creatinine Est GFR ( Amer) Glucose Calcium Magnesium Ferritin Total Bilirubin AST Alkaline Phosphatase C-Reactive Protein Total Protein Albumin 03/26/20 11:24 WBC RBC Hgb Hct MCV MCH MCHC RDW Plt Count Seg Neutrophils % Carbonic Acid HCO3/H2CO3 Ratio ABG pH ABG pCO2 ABG pO2 ABG HCO3 ABG O2 Saturation ABG Base Excess FiO2 Sodium 134.3 L Potassium 4.1 Chloride 96 L Carbon Dioxide 30 Anion Gap 8 BUN 23 H Creatinine 0.80 Est GFR ( Amer) > 60 Glucose 187 H Calcium 8.8 Magnesium 2.3 Ferritin 241.00 Total Bilirubin 0.7 AST 41 H Alkaline Phosphatase 53 C-Reactive Protein 56.8 H Total Protein 6.7 Albumin 3.4 L 03/21/20 01:59 Blood Blood Culture - Final NO GROWTH IN 5 DAYS 03/21/20 00:58 Blood Blood Culture - Final NO GROWTH IN 5 DAYS 03/21/20 03/21/20 00:58 01:47 Troponin I Cancelled 0.015 Impressions: Chest X-Ray 03/21/20 01:05 IMPRESSION: Bilateral airspace opacities worrisome for pneumonia copyright 2010 [employer]- All Rights Reserved Assessment and Plan - Diagnosis (1) Acute respiratory failure with hypoxia Is this a current diagnosis for this admission?: Yes (2) Hyperglycemia due to type 2 diabetes mellitus Qualifiers: Diabetes mellitus half-way insulin use: without half-way use Qualified Code(s): E11.65 - Type 2 diabetes mellitus with hyperglycemia Is this a current diagnosis for this admission?: Yes (3) Obesity Qualifiers: Obesity type: unspecified obesity type Obesity classification: adult class 2 (BMI 35 - 39.9) Serious obesity comorbidity presence: with serious comorbidity Body mass index: BMI 38.0-38.9 Qualified Code(s): E66.01 - Mor bid (severe) obesity due to excess calories; Z68.38 - Body mass index (BMI) 38.0-38.9, adult Is this a current diagnosis for this admission?: Yes (4) Pneumonia due to COVID-19 virus Is this a current diagnosis for this admission?: Yes - Plan Summary Summary: COVID Pneumonia Acute respiratory failure with hypoxia currently on HFNC, doing much better today in comparison to yesterday COVID test positive (done at outside facility) D-dimer, ferritin, CRP are all reduced with treatment IV Remdesivir IV dexamethasone patient agreed to start convalescent serum today, ordered x3 doses As needed nebulizer treatments. Zinc, vitamin D, vitamin C, and melatonin supplementation. Analgesics and antipyretics prn Encourage pulmonary toilet. Isolation precautions. Post-menopausal bleeding: she reports daily vaginal bleeding. Her hemoglobin remains stable. In 2016 she had a vaginal ultrasound which showed a thickened endometrial stripe. There was no biopsy at that time. She will need outpatient OBGYN follow up upon discharge. Hyperglycemia due to type 2 diabetes mellitus: hemoglobin A1c 10.5. Controlled on current regimen, will continue. Start metformin on discharge. essential hypertension: continue lisinopril, nifedipine and HCTZ. Start Imdur. Obesity: BMI 38. Provided education regarding diet and exercise. DVT ppx: Lovenox - Time Time Spent with patient: 35 or more minutes Anticipated Discharge Disposition: Home with Home Health Anticipated Discharge Timeframe: within 72 hours
[2020-03-26] MEDS: INSULIN GLARGINE,HUM.REC.ANLOG 1,000 UNIT/10 ML VIAL SUBCUT SCH (22:50)
[2020-03-27] MEDS: INSULIN LISPRO 100 UNIT/ML 3 ML VIAL SUBCUT SCH ×4 (09:34→21:45)
[2020-03-27] MEDS: HYDROCHLOROTHIAZIDE 12.5 MG TABLET PO SCH (09:38)
[2020-03-27] MEDS: ASCORBIC ACID 500 MG TABLET PO SCH ×2 (09:38→17:41)
[2020-03-27] MEDS: LISINOPRIL 10 MG TABLET PO SCH (09:38)
[2020-03-27] MEDS: ENOXAPARIN SODIUM INJ 40 MG/0.4 ML DISP.SYRIN SUBCUT SCH (09:38)
[2020-03-27] MEDS: NIFEDIPINE 30 MG TAB.ER.24 PO SCH ×2 (09:38→21:47)
[2020-03-27] MEDS: ZINC SULFATE 220 MG CAPSULE PO SCH (09:38)
[2020-03-27] MEDS: ISOSORBIDE MONONITRATE 60 MG TAB.ER.24H PO SCH (09:39)
[2020-03-27] MEDS: DEXAMETHASONE SOD PHOS INJ 10 MG/1 ML VIAL IV SCH (09:39)
[2020-03-27] MEDS: FAMOTIDINE 20 MG TABLET PO SCH ×2 (09:39→21:46)
[2020-03-27] MEDS: CHOLECALCIFEROL (D3) 400 UNIT TABLET PO SCH (09:39)
--- NOTE | 2020-03-27 16:36 | PDOC PROGRESS REPORT ---
Subjective Progress Note for:: 03/27/20 Subjective:: Breathing much improved today. Able to be weaned off of HFNC to oximizer. Reason For Visit: COVID-19 PNEUMONIA Physical Exam Vital Signs: Temp Pulse Resp BP Pulse Ox 98.1 F 78 16 135/72 H 91 L 03/27/20 10:00 03/27/20 14:00 03/27/20 12:19 03/27/20 08:53 03/27/20 12:19 Intake & Output 03/26/20 03/27/20 03/28/20 06:59 06:59 06:59 Intake Total 487 990 240 Balance 487 990 240 Weight 114.4 kg 115 kg General appearance: PRESENT: no acute distress, obese Eye exam: ABSENT: scleral icterus Mouth exam: PRESENT: moist Neck exam: ABSENT: JVD Respiratory exam: PRESENT: clear to auscultation iza, unlabored. ABSENT: tachypnea, wheezes Cardiovascular exam: PRESENT: RRR GI/Abdominal exam: PRESENT: normal bowel sounds, soft. ABSENT: tenderness Extremities exam: ABSENT: pedal edema Neurological exam: PRESENT: alert, awake, oriented to person, oriented to place, oriented to situation Psychiatric exam: PRESENT: appropriate affect Results Laboratory Results: 03/26/20 11:24 03/26/20 11:24 03/21/20 03/21/20 00:58 01:47 Troponin I Cancelled 0.015 Impressions: Chest X-Ray 03/21/20 01:05 IMPRESSION: Bilateral airspace opacities worrisome for pneumonia copyright 2011 [employer]- All Rights Reserved Assessment and Plan - Diagnosis (1) Acute respiratory failure with hypoxia Is this a current diagnosis for this admission?: Yes (2) Hyperglycemia due to type 2 diabetes mellitus Qualifiers: Diabetes mellitus chcf insulin use: without chcf use Qualified Code(s): E11.65 - Type 2 diabetes mellitus with hyperglycemia Is this a current diagnosis for this admission?: Yes (3) Obesity Qualifiers: Obesity type: unspecified obesity type Obesity classification: adult class 2 (BMI 35 - 39.9) Serious obesity comorbidity presence: with serious comorbidity Body mass index: BMI 38.0-38.9 Qualified Code(s): E66.01 - Morbid (severe) obesity due to excess calories; Z68.38 - Body mass index (BMI) 38.0-38.9, adult Is this a current diagnosis for this admission?: Yes (4) Pneumonia due to COVID-19 virus Is this a current diagnosis for this admission?: Yes - Plan Summary Summary: COVID Pneumonia Acute respiratory failure with hypoxia currently on oximizer, doing much better today, oxygen needs steadily decreasing COVID test positive (done at outside facility) D-dimer, ferritin, CRP are all reduced with treatment (Remdesivir + dexameth asone) As needed nebulizer treatments. Zinc, vitamin D, vitamin C, and melatonin supplementation. Analgesics and antipyretics prn Encourage pulmonary toilet. Isolation precautions. Post-menopausal bleeding: she reports daily vaginal bleeding. Her hemoglobin remains stable. In 2016 she had a vaginal ultrasound which showed a thickened endometrial stripe. There was no biopsy at that time. She will need outpatient OBGYN follow up upon discharge. Hyperglycemia due to type 2 diabetes mellitus: hemoglobin A1c 10.5. Controlled on current regimen, will continue. Start metformin on discharge. essential hypertension: continue lisinopril, nifedipine and HCTZ. Start Imdur. Obesity: BMI 38. Provided education regarding diet and exercise. DVT ppx: Lovenox - Time Time Spent with patient: 35 or more minutes Anticipated Discharge Disposition: Home with Home Health Anticipated Discharge Timeframe: within 48 hours
[2020-03-27] MEDS: INSULIN GLARGINE,HUM.REC.ANLOG 1,000 UNIT/10 ML VIAL SUBCUT SCH (21:45)
[2020-03-27] MEDS: MELATONIN 5 MG TABLET PO PRN (21:46)
[2020-03-28] MEDS: INSULIN LISPRO 100 UNIT/ML 3 ML VIAL SUBCUT SCH ×4 (09:58→21:47)
[2020-03-28] MEDS: FAMOTIDINE 20 MG TABLET PO SCH ×2 (10:03→21:45)
[2020-03-28] MEDS: HYDROCHLOROTHIAZIDE 12.5 MG TABLET PO SCH (10:03)
[2020-03-28] MEDS: ASCORBIC ACID 500 MG TABLET PO SCH ×2 (10:03→17:58)
[2020-03-28] MEDS: ZINC SULFATE 220 MG CAPSULE PO SCH (10:03)
[2020-03-28] MEDS: CHOLECALCIFEROL (D3) 400 UNIT TABLET PO SCH (10:03)
[2020-03-28] MEDS: NIFEDIPINE 30 MG TAB.ER.24 PO SCH ×2 (10:03→21:45)
[2020-03-28] MEDS: LISINOPRIL 10 MG TABLET PO SCH (10:03)
[2020-03-28] MEDS: ISOSORBIDE MONONITRATE 60 MG TAB.ER.24H PO SCH (10:03)
[2020-03-28] MEDS: ENOXAPARIN SODIUM INJ 40 MG/0.4 ML DISP.SYRIN SUBCUT SCH (10:03)
[2020-03-28] MEDS: DEXAMETHASONE SOD PHOS INJ 10 MG/1 ML VIAL IV SCH (10:03)
[2020-03-28 10:21] LABS: ABSOLUTE EOSINOPHILS # (AUTO) 0.1 10^3/uL (0.0-0.6); ABSOLUTE MONOCYTES (AUTO) 0.4 10^3/uL (0.1-1.4); ABSOLUTE NEUT (AUTO) 3.8 10^3/uL (1.7-8.2); BASOPHILS % (AUTO) 0.2 % (0-2); EOSINOPHILS % (AUTO) 0.8 % (0-6); HEMATOCRIT 36.8 % (36.0-47.0); HEMOGLOBIN 12.4 g/dL (12.0-15.5); MEAN CORPUSCULAR HEMOGLOBIN 27.9 pg (27.0-33.4); MEAN CORPUSCULAR HGB CONC 33.8 g/dL (32.0-36.0); MEAN CORPUSCULAR VOLUME 82 fl (80-97); MONOCYTES % (AUTO) 6.7 % (3-13); PLATELET COUNT 452 10^3/uL (150-450); RED BLOOD COUNT 4.47 10^6/uL (3.72-5.28); SEGMENTED NEUTROPHILS % (AUTO) 60.3 % (42-78); TOTAL CELLS COUNTED % (AUTO) 100 %; WHITE BLOOD COUNT 6.2 10^3/uL (4.0-10.5)
[2020-03-28 13:30] LABS: ANION GAP 10 (5-19); BLOOD UREA NITROGEN 30 mg/dL (7-20); C-REACTIVE PROTEIN 32.6 mg/L (<10.0); CALCIUM 9.5 mg/dL (8.4-10.2); CARBON DIOXIDE 30 mmol/L (22-30); CHLORIDE 100 mmol/L (98-107); GLUCOSE 143 mg/dL (75-110); POTASSIUM 4.3 mmol/L (3.6-5.0)
--- NOTE | 2020-03-28 16:23 | PDOC PROGRESS REPORT ---
Subjective Progress Note for:: 03/28/20 Subjective:: NAEO. Breathing improving. She remains on oximizer today, appears comfortable. Reason For Visit: COVID-19 PNEUMONIA Physical Exam Vital Signs: Temp Pulse Resp BP Pulse Ox 98.3 F 90 15 160/71 H 88 L 03/28/20 12:24 03/28/20 14:00 03/28/20 12:24 03/28/20 12:24 03/28/20 12:24 Intake & Output 03/27/20 03/28/20 03/29/20 06:59 06:59 06:59 Intake Total 990 1110 Output Total 0 Balance 990 1110 Weight 115 kg 114.7 kg General appearance: PRESENT: no acute distress Eye exam: ABSENT: scleral icterus Mouth exam: PRESENT: moist Neck exam: ABSENT: JVD Respiratory exam: PRESENT: clear to auscultation iza, unlabored. ABSENT: wheezes Cardiovascular exam: PRESENT: RRR GI/Abdominal exam: PRESENT: normal bowel sounds, soft Extremities exam: ABSENT: pedal edema Neurological exam: PRESENT: alert, awake Psychiatric exam: PRESENT: flat affect Results Laboratory Results: 03/28/20 09:53 03/28/20 09:53 03/28/20 03/28/20 09:53 09:53 WBC 6.2 RBC 4.47 Hgb 12.4 Hct 36.8 MCV 82 MCH 27.9 MCHC 33.8 RDW 16.0 H Plt Count 452 H Seg Neutrophils % 60.3 Sodium 139.9 Potassium 4.3 Chloride 100 Carbon Dioxide 30 Anion Gap 10 BUN 30 H Creatinine 0.90 Est GFR ( Amer) > 60 Glucose 143 H Calcium 9.5 Magnesium 2.3 Ferritin 216.00 C-Reactive Protein 32.6 H 03/21/20 03/21/20 00:58 01:47 Troponin I Cancelled 0.015 Impressions: Chest X-Ray 03/21/20 01:05 IMPRESSION: Bilateral airspace opacities worrisome for pneumonia copyright 2011 [employer]- All Rights Reserved Assessment and Plan - Diagnosis (1) Acute respiratory failure with hypoxia Is this a current diagnosis for this admission?: Yes (2) Hyperglycemia due to type 2 diabetes mellitus Qualifiers: Diabetes mellitus meterman insulin use: without meterman use Qualified Code(s): E11.65 - Type 2 diabetes mellitus with hyperglycemia Is this a current diagnosis for this admission?: Yes (3) Obesity Qualifiers: Obesity type: unspecified obesity type Obesity classification: adult class 2 (BMI 35 - 39.9) Serious obesity comorbidity presence: with serious comorbidity Body mass index: BMI 38.0-38.9 Qualified Code(s): E66.01 - Morbid (severe) obesity due to excess calories; Z68.38 - Body mass index (BMI) 38.0-38.9, adult Is this a current diagnosis for this admission?: Yes (4) Pneumonia due to COVID-19 virus Is this a current diagnosis for this admission?: Yes - Plan Summary Summary: Acute hypoxemic respiratory failure due to COVID Pneumonia: currently on oximizer, doing much better overall, oxygen needs steadily decreasing. COVID test positive (done at outside facility). D-dimer, ferritin, CRP are all reduced with treatment (Remdesivir + dexamethasone). Continue as needed nebulizer treatments, zinc, vitamin D, vitamin C, and melatonin supplementation. Analgesics and antipyretics prn. Encourage pulmonary toilet. Isolation precautions. Post-menopausal bleeding: she reports daily vaginal bleeding. Her hemoglobin remains stable. In 2016 she had a vaginal ultrasound which showed a thickened endometrial stripe. There was no biopsy at that time. She will need outpatient OBGYN follow up upon discharge. Hyperglycemia due to type 2 diabetes mellitus: hemoglobin A1c 10.5. Controlled on current regimen, will continue. Start metformin on discharge. essential hypertension: continue lisinopril, nifedipine and HCTZ. Start Imdur. Obesity: BMI 38. Provided education regarding diet and exercise. DVT ppx: Lovenox - Time Time Spent with patient: 35 or more minutes Anticipated Discharge Disposition: Home, Self Care Anticipated Discharge Timeframe: within 48 hours
[2020-03-28] MEDS: INSULIN GLARGINE,HUM.REC.ANLOG 1,000 UNIT/10 ML VIAL SUBCUT SCH (21:45)
[2020-03-29] MEDS: INSULIN LISPRO 100 UNIT/ML 3 ML VIAL SUBCUT SCH ×7 (08:39→22:17)
[2020-03-29] MEDS: DEXAMETHASONE SOD PHOS INJ 10 MG/1 ML VIAL IV SCH (09:03)
[2020-03-29] MEDS: HYDROCHLOROTHIAZIDE 12.5 MG TABLET PO SCH (09:03)
[2020-03-29] MEDS: FAMOTIDINE 20 MG TABLET PO SCH ×2 (09:04→22:18)
[2020-03-29] MEDS: ISOSORBIDE MONONITRATE 60 MG TAB.ER.24H PO SCH (09:04)
[2020-03-29] MEDS: ENOXAPARIN SODIUM INJ 40 MG/0.4 ML DISP.SYRIN SUBCUT SCH (09:04)
[2020-03-29] MEDS: CHOLECALCIFEROL (D3) 400 UNIT TABLET PO SCH (09:05)
[2020-03-29] MEDS: ZINC SULFATE 220 MG CAPSULE PO SCH (09:05)
[2020-03-29] MEDS: ASCORBIC ACID 500 MG TABLET PO SCH ×2 (09:05→17:22)
[2020-03-29] MEDS: LISINOPRIL 10 MG TABLET PO SCH (10:43)
[2020-03-29] MEDS: NIFEDIPINE 30 MG TAB.ER.24 PO SCH ×2 (10:43→22:18)
--- NOTE | 2020-03-29 11:57 | PDOC PROGRESS REPORT ---
Subjective Progress Note for:: 03/29/20 Subjective:: Patient feels well, and is asking whether she can go home yet. BG and BP remain uncontrolled. Oxygen is being weaned down. Reason For Visit: COVID-19 PNEUMONIA Physical Exam Vital Signs: Temp Pulse Resp BP Pulse Ox 98.0 F 87 17 193/87 H 95 03/29/20 08:11 03/29/20 08:11 03/29/20 08:11 03/29/20 08:11 03/29/20 08:11 Intake & Output 03/28/20 03/29/20 03/30/20 06:59 06:59 06:59 Intake Total 1110 624 Output Total 0 0 Balance 1110 624 Weight 114.7 kg 114 kg 114 kg General appearance: PRESENT: no acute distress, cooperative Eye exam: ABSENT: scleral icterus Mouth exam: PRESENT: moist Throat exam: ABSENT: post pharyngeal erythema Neck exam: ABSENT: JVD Respiratory exam: PRESENT: clear to auscultation iza, unlabored Cardiovascular exam: PRESENT: RRR GI/Abdominal exam: PRESENT: normal bowel sounds, soft Extremities exam: ABSENT: pedal edema Neurological exam: PRESENT: alert, awake Psychiatric exam: PRESENT: flat affect Results Laboratory Results: 03/28/20 09:53 03/28/20 09:53 03/28/20 09:53 Sodium 139.9 Potassium 4.3 Chloride 100 Carbon Dioxide 30 Anion Gap 10 BUN 30 H Creatinine 0.90 Est GFR ( Amer) > 60 Glucose 143 H Calcium 9.5 Magnesium 2.3 Ferritin 216.00 C-Reactive Protein 32.6 H 03/21/20 03/21/20 00:58 01:47 Troponin I Cancelled 0.015 Impressions: Chest X-Ray 03/21/20 01:05 IMPRESSION: Bilateral airspace opacities worrisome for pneumonia copyright 2011 [employer]- All Rights Reserved Assessment and Plan - Diagnosis (1) Acute respiratory failure with hypoxia Is this a current diagnosis for this admission?: Yes (2) Hyperglycemia due to type 2 diabetes mellitus Qualifiers: 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 insulin use: without overlock waistline joiner use Qualified Code(s): E11.65 - Type 2 diabetes mellitus with hyperglycemia Is this a current diagnosis for this admission?: Yes (3) Obesity Qualifiers: Obesity type: unspecified obesity type Obesity classification: adult class 2 (BMI 35 - 39.9) Serious obesity comorbidity presence: with serious comorbidity Body mass index: BMI 38.0-38.9 Qualified Code(s): E66.01 - Morbid (severe) obesity due to excess calories; Z68.38 - Body mass index (BMI) 38.0-38.9, adult Is this a current diagnosis for this admission?: Yes (4) Pneumonia due to COVID-19 virus Is this a current diagnosis for this admission?: Yes (5) Asymptomatic hypertensive urgency Is this a current diagnosis for this admission?: Yes - Plan Summary Summary: Acute hypoxemic respiratory failure due to COVID Pneumonia: currently on oximizer, doing much better overall, oxygen needs steadily decreasing. COVID test positive (done at outside facility). D-dimer, ferritin, CRP are all reduced with treatment (Remdesivir + dexamethasone). Continue as needed nebulizer treatments, zinc, vitamin D, vitamin C, and melatonin supplementation. Analgesics and antipyretics prn. Encourage pulmonary toilet. Isolation precautions. Post-menopausal bleeding: she reports daily vaginal bleeding. Her hemoglobin remains stable. In 2015 she had a vaginal ultrasound which showed a thickened endometrial stripe. There was no biopsy at that time. She will need outpatient OBGYN follow up upon discharge. Hyperglycemia due to type 2 diabetes mellitus: hemoglobin A1c 10.5. Uncontrolled on current regimen, will start meal-time insulin in addition to Lantus and SSI. Start metformin on discharge. Hypertensive Urgency: SBP >190, patient asymptomatic -increase lisinopril (anticipate resultant increase in Cr) -increase nifedipine -continue HCTZ at current dose -continue Imdur at current dose Obesity: BMI 37. Provided education regarding diet and exercise. DVT ppx: Lovenox - Time Time Spent with patient: 35 or more minutes Anticipated Discharge Disposition: Home, Self Care Anticipated Discharge Timeframe: within 48 hours
[2020-03-29] MEDS: INSULIN GLARGINE,HUM.REC.ANLOG 1,000 UNIT/10 ML VIAL SUBCUT SCH (22:17)
[2020-03-30] MEDS: MELATONIN 5 MG TABLET PO PRN (01:58)
[2020-03-30] MEDS: INSULIN LISPRO 100 UNIT/ML 3 ML VIAL SUBCUT SCH ×6 (08:16→16:15)
[2020-03-30] MEDS: ENOXAPARIN SODIUM INJ 40 MG/0.4 ML DISP.SYRIN SUBCUT SCH (09:58)
[2020-03-30] MEDS: FAMOTIDINE 20 MG TABLET PO SCH (09:59)
[2020-03-30] MEDS: HYDROCHLOROTHIAZIDE 12.5 MG TABLET PO SCH (09:59)
[2020-03-30] MEDS: NIFEDIPINE 30 MG TAB.ER.24 PO SCH (09:59)
[2020-03-30] MEDS: CHOLECALCIFEROL (D3) 400 UNIT TABLET PO SCH (10:00)
[2020-03-30] MEDS: ISOSORBIDE MONONITRATE 60 MG TAB.ER.24H PO SCH (10:00)
[2020-03-30] MEDS: ZINC SULFATE 220 MG CAPSULE PO SCH (10:00)
[2020-03-30] MEDS: ASCORBIC ACID 500 MG TABLET PO SCH ×2 (10:01→17:41)
[2020-03-30] MEDS: LISINOPRIL 10 MG TABLET PO SCH (10:01)
[2020-03-30] MEDS: DEXAMETHASONE SOD PHOS INJ 10 MG/1 ML VIAL IV SCH (10:02)
[2020-03-30 10:29] LABS: ABSOLUTE LYMPHOCYTES (AUTO) 2.7 10^3/uL (0.5-4.7); ABSOLUTE MONOCYTES (AUTO) 0.5 10^3/uL (0.1-1.4); BASOPHILS % (AUTO) 0.3 % (0-2); EOSINOPHILS % (AUTO) 0.5 % (0-6); HEMATOCRIT 37.9 % (36.0-47.0); HEMOGLOBIN 12.7 g/dL (12.0-15.5); LYMPHOCYTES % (AUTO) 37.4 % (13-45); MEAN CORPUSCULAR HEMOGLOBIN 27.7 pg (27.0-33.4); MEAN CORPUSCULAR HGB CONC 33.5 g/dL (32.0-36.0); MEAN CORPUSCULAR VOLUME 83 fl (80-97); MONOCYTES % (AUTO) 7.3 % (3-13); PLATELET COUNT 443 10^3/uL (150-450); RED BLOOD COUNT 4.59 10^6/uL (3.72-5.28); RED CELL DISTRIBUTION WIDTH 15.7 % (11.5-14.0); SEGMENTED NEUTROPHILS % (AUTO) 54.5 % (42-78); TOTAL CELLS COUNTED % (AUTO) 100 %; WHITE BLOOD COUNT 7.3 10^3/uL (4.0-10.5)
[2020-03-30 10:43] LABS: ANION GAP 9 (5-19); BLOOD UREA NITROGEN 28 mg/dL (7-20); CALCIUM 9.5 mg/dL (8.4-10.2); CARBON DIOXIDE 28 mmol/L (22-30); CHLORIDE 99 mmol/L (98-107); GLUCOSE 212 mg/dL (75-110); POTASSIUM 4.3 mmol/L (3.6-5.0)
--- NOTE | 2020-03-30 14:46 | PDOC DISCHARGE SUMMARY ---
Impression - Admit/DC Date/PCP Admission Date/Primary Care Provider: 03/21/20 04:06 DUSTIN CARLOS DO Discharge Date: 03/30/20 - Discharge Diagnosis (1) Acute respiratory failure with hypoxia Is this a current diagnosis for this admission?: Yes (2) Hyperglycemia due to type 2 diabetes mellitus Is this a current diagnosis for this admission?: Yes (3) Obesity Is this a current diagnosis for this admission?: Yes (4) Pneumonia due to COVID-19 virus Is this a current diagnosis for this admission?: Yes (5) Asymptomatic hypertensive urgency Is this a current diagnosis for this admission?: Yes - Assessment Summary: Acute hypoxemic respiratory failure due to COVID Pneumonia: COVID test positive (done at outside facility). D-dimer, ferritin, CRP were elevated on admission and reduced with treatment (Remdesivir + dexamethasone). Her oxygen needs steadily decreased during hospital stay and she was successfully weaned off supplemental O2 on the day of discharge. Her ambulatory oxygen saturations on the day of discharge were above >89%. Post-menopausal bleeding: she reports daily vaginal bleeding. Her hemoglobin remained stable throughout admission. In 2016 she had a vaginal ultrasound which showed a thickened endometrial stripe. There was no biopsy at that time. She will need outpatient OBGYN follow up after discharge. Hyperglycemia due to type 2 diabetes mellitus: hemoglobin A1c 10.5. She was managed with insulin while inpatient, but did not feel comfortable administering insulin to herself at home. She was thus discharged on metformin/glipizide and strict instructions on weight loss and a carb-controlled diet. Hyperlipidemia, mixed: she was started on high intensity statin given concomitant HTN/DM2. Hypertensive Urgency: controlled on regimen of lisinopril, nifedipine, HCTZ and Imdur. Obesity: BMI 37. Provided education regarding diet, exercise and weight loss. Prior to this hospitalization, Ms. Prieto was not seeing her PCP regularly and not taking any medications. She was advised to follow up closely with her PCP and OBGYN in 1-2 weeks after discharge. She will need close outpatient monitoring of her HTN/DM2. She is now stable for discharge home. - Additional Information Resuscitation Status: Full Code Discharge Diet: Diabetic Discharge Activity: Activity As Tolerated Referrals: DUSTIN CARLOS DO [Primary Care Provider] - Follow up as needed Prescriptions: Glipizide [Glipizide Xl] 10 mg PO DAILY #30 tab.er.24 Metformin HCl [Glucophage] 1,000 mg PO BID #60 tablet Hydrochlorothiazide [Hydrodiuril 12.5 mg Tablet] 12.5 mg PO QAM #30 capsule Isosorbide Mononitrate [Isosorbide Mononitrate ER] 120 mg PO DAILY #30 tab.er.24h Atorvastatin Calcium [Lipitor 40 mg Tablet] 40 mg PO DAILY #30 tablet Nifedipine [Nifedipine ER] 90 mg PO DAILY #30 tablet.er Lisinopril [Zestril] 40 mg PO DAILY #30 tablet Home Medications: Atorvastatin Calcium [Lipitor 40 mg Tablet] 40 mg PO DAILY #30 tablet 03/30/20 Glipizide [Glipizide Xl] 10 mg PO DAILY #30 tab.er.24 03/30/20 Hydrochlorothiazide [Hydrodiuril 12.5 mg Tablet] 12.5 mg PO QAM #30 capsule 03/30/20 Isosorbide Mononitrate [Isosorbide Mononitrate ER] 120 mg PO DAILY #30 tab.er.24h 03/30/20 Lisinopril [Zestril] 40 mg PO DAILY #30 tablet 03/30/20 Metformin HCl [Glucophage] 1,000 mg PO BID #60 tablet 03/30/20 Nifedipine [Nifedipine ER] 90 mg PO DAILY #30 tablet.er 03/30/20 History of Present Illiness History of Present Illness: NUVIA Saavedra STONE is a 64 year old female Physical Exam Vital Signs: Temp Pulse Resp BP Pulse Ox 97.7 F 85 16 133/74 H 94 03/30/20 11:53 03/30/20 11:53 03/30/20 11:53 03/30/20 11:53 03/30/20 11:53 Intake & Output 03/29/20 03/30/20 03/31/20 06:59 06:59 06:59 Intake Total 624 1204 Output Total 0 Balance 624 1204 Weight 114 kg 114 kg Results Laboratory Results: WBC 7.3 10^3/uL (4.0-10.5) 03/30/20 09:45 RBC 4.59 10^6/uL (3.72-5.28) 03/30/20 09:45 Hgb 12.7 g/dL (12.0-15.5) 03/30/20 09:45 Hct 37.9 % (36.0-47.0) 03/30/20 09:45 MCV 83 fl (80-97) 03/30/20 09:45 MCH 27.7 pg (27.0-33.4) 03/30/20 09:45 MCHC 33.5 g/dL (32.0-36.0) 03/30/20 09:45 RDW 15.7 % (11.5-14.0) H 03/30/20 09:45 Plt Count 443 10^3/uL (150-450) 03/30/20 09:45 Lymph % (Auto) 37.4 % (13-45) 03/30/20 09:45 [place] % (Auto) 7.3 % (3-13) 03/30/20 09:45 Eos % (Auto) 0.5 % (0-6) 03/30/20 09:45 Baso % (Auto) 0.3 % (0-2) 03/30/20 09:45 Absolute Neuts (auto) 4.0 10^3/uL (1.7-8.2) 03/30/20 09:45 Absolute Lymphs (auto) 2.7 10^3/uL (0.5-4.7) 03/30/20 09:45 Absolute Monos (auto) 0.5 10^3/uL (0.1-1.4) 03/30/20 09:45 Absolute Eos (auto) 0.0 10^3/uL (0.0-0.6) 03/30/20 09:45 Absolute Basos (auto) 0.0 10^3/uL (0.0-0.2) 03/30/20 09:45 Seg Neutrophils % 54.5 % (42-78) 03/30/20 09:45 PT 15.1 SEC (11.4-15.4) 03/26/20 11:24 INR 1.17 03/26/20 11:24 APTT 26.7 SEC (23.5-35.8) 03/26/20 11:24 D-Dimer 0.40 ug/mL (0.00-0.50) 03/28/20 09:53 Carbonic Acid 1.15 mmol/L (1.05-1.35) 03/26/20 00:45 HCO3/H2CO3 Ratio 22:1 03/26/20 00:45 ABG pH 7.44 (7.35-7.45) 03/26/20 00:45 ABG pCO2 38.2 mmHg (35-45) 03/26/20 00:45 ABG pO2 76.7 mmHg (80-100) L 03/26/20 00:45 ABG HCO3 25.3 mmol/L (20-24) H 03/26/20 00:45 ABG Total CO2 26.5 mmol/L (21-25) H 03/26/20 00:45 ABG O2 Saturation 95.8 % (94-98) 03/26/20 00:45 ABG Base Excess 1.3 mmol/L 03/26/20 00:45 VBG pH 7.50 (7.30-7.42) H 03/21/20 01:47 VBG pCO2 35.8 mmHg (35-63) 03/21/20 01:47 VBG HCO3 27.0 mmol/L (20-32) 03/21/20 01:47 VBG Base Excess 3.9 mmol/L 03/21/20 01:47 FiO2 95% 03/26/20 00:45 Sodium 136.1 mmol/L (137-145) L 03/30/20 09:45 Potassium 4.3 mmol/L (3.6-5.0) 03/30/20 09:45 Chloride 99 mmol/L (98-107) 03/30/20 09:45 Carbon Dioxide 28 mmol/L (22-30) 03/30/20 09:45 Anion Gap 9 (5-19) 03/30/20 09:45 BUN 28 mg/dL (7-20) H 03/30/20 09:45 Creatinine 0.89 mg/dL (0.52-1.25) 03/30/20 09:45 Est GFR ( Amer) > 60 (>60) 03/30/20 09:45 Est GFR (Non-Af Amer) Cancelled 03/21/20 00:58 Est GFR (MDRD) Non-Af > 60 (>60) 03/30/20 09:45 Glucose 212 mg/dL (75-110) H 03/30/20 09:45 POC Glucose 198 mg/dL (70-110) H 03/30/20 11:53 Hemoglobin A1c % 10.5 % (4.7-6.0) H 03/21/20 11:05 Lactic Acid 1.1 mmol/L (0.7-2.1) 03/21/20 01:47 Calcium 9.5 mg/dL (8.4-10.2) 03/30/20 09:45 Magnesium 2.1 mg/dL (1.6-2.3) 03/30/20 09:45 Ferritin 216.00 ng/mL (11.1-264.0) 03/28/20 09:53 Total Bilirubin 0.7 mg/dL (0.2-1.3) 03/26/20 11:24 Direct Bilirubin 0.4 mg/dL (0.0-0.4) 03/26/20 11:24 Neonat Total Bilirubin Not Reportable 03/26/20 11:24 Neonat Direct Bilirubin Not Reportable 03/26/20 11:24 Neonat Indirect Bili Not Reportable 03/26/20 11:24 AST 41 U/L (14-36) H 03/26/20 11:24 ALT 34 U/L (<35) 03/26/20 11:24 Alkaline Phosphatase 53 U/L (38-126) 03/26/20 11:24 Lactate Dehydrogenase 470 U/L (120-246) H 03/24/20 07:50 Troponin I 0.015 ng/mL 03/21/20 01:47 C-Reactive Protein 32.6 mg/L (<10.0) H 03/28/20 09:53 Total Protein 6.7 g/dL (6.3-8.2) 03/26/20 11:24 Albumin 3.4 g/dL (3.5-5.0) L 03/26/20 11:24 Triglycerides 109 mg/dL (<150) 03/21/20 11:05 Cholesterol 110.90 mg/dL (0-200) 03/21/20 11:05 LDL Cholesterol Direct 53 mg/dL (<100) 03/21/20 11:05 VLDL Cholesterol 22.0 mg/dL (10-31) 03/21/20 11:05 HDL Cholesterol 35 mg/dL (>40) L 03/21/20 11:05 EGFR Cancelled 03/21/20 00:58 Urine Color YELLOW 03/21/20 03:27 Urine Appearance CLEAR 03/21/20 03:27 Urine pH 6.0 (5.0-9.0) 03/21/20 03:27 Ur Specific [place] 1.008 03/21/20 03:27 Urine Protein 100 mg/dL (NEGATIVE) H 03/21/20 03:27 Urine Glucose (UA) NEGATIVE mg/dL (NEGATIVE) 03/21/20 03:27 Urine Ketones TRACE mg/dL (NEGATIVE) H 03/21/20 03:27 Urine Blood LARGE (NEGATIVE) H 03/21/20 03:27 Urine Nitrite NEGATIVE (NEGATIVE) 03/21/20 03:27 Urine Bilirubin NEGATIVE (NEGATIVE) 03/21/20 03:27 Urine Urobilinogen 4.0 mg/dL (<2.0) H 03/21/20 03:27 Ur Leukocyte Esterase NEGATIVE (NEGATIVE) 03/21/20 03:27 Urine WBC (Auto) 10 /HPF 03/21/20 03:27 Urine RBC (Auto) >182 /HPF 03/21/20 03:27 Squamous Epi Cells Auto <1 /HPF 03/21/20 03:27 Urine Mucus (Auto) RARE /LPF 03/21/20 03:27 Urine Ascorbic Acid NEGATIVE (NEGATIVE) 03/21/20 03:27 Blood Type A POSITIVE 03/26/20 14:57 Antibody Screen NEGATIVE 03/21/20 11:05 03/21/20 03/21/20 00:58 01:47 Troponin I Cancelled 0.015 Impressions: Chest X-Ray 03/21/20 01:05 IMPRESSION: Bilateral airspace opacities worrisome for pneumonia copyright 2011 [employer]- All Rights Reserved Stroke Is this a Stroke Patient?: No Acute Heart Failure Is this a Heart Failure Patient?: No
[2020-03-30 15:45] VITALS: BP 171/66
== END 2020-03-30 17:30 | disposition home or self-care (01) | DRG 177 ==
LOC: ER 00:45 → EH 04:06 → 3N 08:51
PROVIDERS: ADMIT Emergency Medicine; ATTEND Hospitalist
PROC: XW033E5 Introduction of Remdesivir Anti-infective into Peripheral Vein, Percutaneous Approach, New Technology Group 5 (ICD-10-PCS; principal; 2020-03-21)
DX: U07.1 COVID-19 (principal); J12.89 Other viral pneumonia; E11.65 Type 2 diabetes mellitus with hyperglycemia; I16.0 Hypertensive urgency; N95.0 Postmenopausal bleeding; E78.2 Mixed hyperlipidemia; I10 Essential (primary) hypertension; E66.01 Morbid (severe) obesity due to excess calories; Z68.38 Body mass index [BMI] 38.0-38.9, adult; Z79.899 Other long term (current) drug therapy; Z79.84 Long term (current) use of oral hypoglycemic drugs; Z83.3 Family history of diabetes mellitus; Z82.49 Family history of ischemic heart disease and other diseases of the circulatory system; Z87.891 Personal history of nicotine dependence
CPT/HCPCS: 36415; 36600; 71045; 80048; 80053; 80061; 81001; 82728; 82803; 82962; 83036; 83605; 83615; 83735; 84484; 85025; 85027; 85379; 85610; 85730; 86140; 86850; 86900; 86901; 87040; 93005; 93010; 94640; 96361; 96365; 96375; 99285; J0360; J0456; J0696; J1100; J1650; J1815; J3490; J7030; J7050; J7060

== ENCOUNTER → 2020-07-31 | Outpatient (CLI) | payer MEDICARE, OTHER ==
--- NOTE | 2020-07-31 15:01 | WOMENS IMAGING REPORT ---
EXAM DESCRIPTION: 3D SCREENING MAMMO BILAT IMAGES COMPLETED DATE/TIME: 07/31/2020 12:04 pm REASON FOR STUDY: Z12.31 ENCOUNTER FOR SCREENING MAMMOGRAM FOR MALIGNANT NEOPLASM OF BREAST Z12.31 ENCNTR SCREEN MAMMOGRAM FOR MALIGNANT NEOPLASM OF JAMES COMPARISON: 04/21/2016, 04/29/2016, 03/16/2013 EXAM PARAMETERS: Standard craniocaudal and mediolateral oblique views of each breast recorded using digital acquisition and breast tomosynthesis. Read with the assistance of CAD. .[facility] - [employer] Version 9.2 LIMITATIONS: None. FINDINGS: Findings present which are benign by mammographic criteria. No suspicious masses, calcific ations or architectural distortion. Pertinent benign findings: Benign-morphology calcifications in circumscribed nodular densities are ag ain seen bilaterally. Benign mammographic findings may include one or more of the following: Smooth masses, popcorn/rim/coa rse calcifications, asymmetries, post-procedure changes, and lesions with long-standing stability. IMPRESSION: BENIGN MAMMOGRAPHIC FINDINGS. BIRADS 2 BREAST DENSITY: c. The breasts are heterogeneously dense, which may obscure small masses. BIRAD: ASSESSMENT: 2 BENIGN FINDING(S) RECOMMENDATION: ROUTINE SCREENING COMMENT: The patient has been notified of the results by letter per [place] requirements. Additional no tification policies are in place for contacting patient with suspicious or incomplete findings. Quality ID #[id number]: The [employer] recommends an annual screening mammogram for women aged 40 years or over. This facility utilizes a reminder system to ensure that all patients receive reminder letters, and/or direct phone calls for appointments. This includes reminders for routine scr eening mammograms, diagnostic mammograms, or other Breast Imaging Interventions when appropriate. Th is patient will be placed in the appropriate reminder system. TECHNICAL DOCUMENTATION: FINDING NUMBER: (1) ASSESSMENT: (1) JOB ID: [id number] 2010 [employer]- All Rights Reserved Reading location - IP/workstation name: [email or web address]
== END ==
LOC: WI 11:17
PROVIDERS: ATTEND Family Medicine
DX: Z12.31 Encounter for screening mammogram for malignant neoplasm of breast (principal)
CPT/HCPCS: 77063; 77067